=== PATIENT | male | born 1940 | race Caucasian/White ===

== ENCOUNTER 2017-03-27 16:51 | Inpatient (IN) ==
[2017-03-27] MEDS ORDERED: Thiamine (B-1) 100 MG in D5% in Water 50 ML IVPB STA (17:25)
[2017-03-27] MEDS ORDERED: 0.9 % Sodium Chloride 500 ML IVC ONE (17:25)
[2017-03-27 17:31] LABS: Basophils % 0.5 %; Hematocrit 45.1 % (37.5-50.1); Immature Granulocytes % 0.5 % (0-4); Lymphocytes # 1.2 K/mcL (0.6-4.6); Lymphocytes % 18.6 %; Mean Corpuscular HGB Conc 33.3 g/dL (31.6-35.5); Mean Corpuscular Volume 90.2 fL (83.0-100.0); Mean Platelet Volume 10.2 fL (9.4-12.4); Monocytes # 0.7 K/mcL (0.0-1.3); Monocytes % 10.9 %; Neutrophils # 4.6 K/mcL (1.6-8.9); Platelet Count 145 K/mcL (140-400); Red Cell Distribution Width 19.1 % (11.5-14.5); Segmented Neutrophils % 69.5 %
--- NOTE | 2017-03-27 17:43 | Emergency Department Note ---
Disposition Clinical Impression: Weakness Disposition: Still a Patient Referrals: Rosa Maria Gaston, SHANNAN [Primary Care Provider] - Forms: ED Satisfaction Letter General Adult HPI - General Chief complaint: ED Fall Stated complaint: fall, ETOH Time Seen by Provider: 03/27/17 16:56 Source: patient, EMS Limitations: no limitations Nursing Notes Reviewed: Yes Vital Signs Reviewed: Yes - History of Present Illness HPI Narrative: Patient here for evaluation after fall. Patient had gone to lunch with his and he fell getting out of the car. EMS found the patient next the car. Patient is currently intoxicated with any history secondary to indirect answers questions. Patient denies specific pain complaints at this time. No specific tenderness to palpation. Patient's leg are swollen with +2 pitting edema thru the knees. Due to the patient's mental status and concern for intoxication. Head and neck CT will be performed. He complains of some epigastric abdominal pain and a EKG, chest x-ray, basic blood work including alcohol level be obtained. EKG shows concern for inversions in the anterior leads. Troponin and BNP were added. Pain Scale: 8 - Related Data Home Medications Medication Instructions Recorded Confirmed Albuterol Sulfate [Albuterol 2 puff IH Q4HR PRN 08/08/15 08/08/15 Inhaler] Aspirin 325 mg PO AD 08/08/15 08/08/15 LORazepam [Ativan] 1 mg PO BID 08/08/15 08/08/15 Nitroglycerin [Nitrostat] 0.4 mg SL AD PRN 08/08/15 08/08/15 Tamsulosin [Flomax] 0.4 mg PO DAILY 08/08/15 08/08/15 Previous Rx's Medication Instructions Recorded Budesonide/Formoterol 80/4.5 1 puff IH BIDR inhaler 08/30/15 [Symbicort] Digoxin [Lanoxin] 0.125 mg PO DAILY #30 tablet 08/30/15 Furosemide [Lasix] 40 mg PO DAILY tablet 08/30/15 Metoprolol [Lopressor] 25 mg PO BID #60 tablet 08/30/15 OxyCODONE/APAP 5/325 [Percocet 1 each PO Q8HR PRN #30 tablet 08/30/15 5/325] Allergies Allergy/AdvReac Type Severity Reaction Status Date / Time No Known Allergies Allergy Verified 03/27/17 17:08 Limitations: ROS unobtainable due to patients medical condition (Intoxicated) Past Medical History - Past Medical History Medical history: Reports: atrial fibrillation, cancer, CHF, hypertension, other Surgical history: Reports: cancer surgery Psychiatric history: Reports: no psych history - Social History Smoking Status: Former smoker Smokeless Tobacco Status: No Alcohol use: Reports: heavy, recent Drug use: Reports: none Physical Exam General appearance: NAD, conversant; intoxicated Eyes: anicteric sclerae, moist conjunctivae; PERRL HENT: Atraumatic; oropharynx clear with moist mucous membranes and no mucosal ulcerations Neck: Normal inspection; Trachea midline; FROM, supple Lungs: CTA, with normal respiratory effort and no intercostal retractions CV: Tachycardic and irregular Abdomen: Soft, non-tender; no rebound or gaurding Extremities: No peripheral edema or extremity lymphadenopathy Skin: Significant sun exposure ;Normal temperature; no rash, ulcers or lesions Psych: Appropriate mood and affect Neuro: alert and oriented to person, not place and time - General Limitations: no limitations General appearance: alert, appears intoxicated Course - Reevaluation(s) Reevaluation #1: Patient signed out to the night team. Dr. Arriaga Vital Signs Temperature 98.7 F 03/27/17 16:54 Pulse Rate 126 03/27/17 16:54 Respiratory Rate 22 03/27/17 16:54 Blood Pressure 108/73 03/27/17 16:54 O2 Sat by Pulse Oximetry 89 03/27/17 16:54 Temperature 98.7 F 03/27/17 16:54 Pulse Rate 114 03/27/17 17:49 Respiratory Rate 22 03/27/17 17:49 Blood Pressure 109/82 03/27/17 17:49 O2 Sat by Pulse Oximetry 90 03/27/17 18:01 Oxygen Delivery Oxygen Delivery Nasal Cannula Medical Decision Making - Medical Records Medical records reviewed: Yes I reviewed the patient's medical records. - Lab Data Lab results reviewed: Yes I reviewed the patient's lab results. Result diagrams: 03/27/17 17:15 03/27/17 17:15 Lab Results 03/27/17 03/27/17 03/27/17 Range/Units 17:15 17:15 17:15 WBC 6.6 (4.3-11.1) K/mcL RBC 5.00 (4.19-5.50) M/mcL Hgb 15.0 (12.9-16.9) g/dL Hct 45.1 (37.5-50.1) % MCV 90.2 (83.0-100.0) fL MCH 30.0 (28.0-33.3) pg MCHC 33.3 (31.6-35.5) g/dL RDW 19.1 H (11.5-14.5) % Plt Count 145 (140-400) K/mcL MPV 10.2 (9.4-12.4) fL Immature Gran % 0.5 (0-4) % Seg Neutrophils % 69.5 % Lymphocytes % 18.6 % Monocytes % 10.9 % Eosinophils % 0.0 % Basophils % 0.5 % Neutrophils # 4.6 (1.6-8.9) K/mcL Lymphocytes # 1.2 (0.6-4.6) K/mcL Monocytes # 0.7 (0.0-1.3) K/mcL Eosinophils # 0.0 (0.0-0.6) K/mcL Basophils # 0.0 (0.0-0.2) K/mcL Sodium 136 (136-145) mEq/L Potassium 3.2 L (3.5-4.5) mEq/L Chloride 103 (98-109) mEq/L Carbon Dioxide 21 (19-29) mEq/L BUN 14 (8-26) mg/dL Creatinine 1.30 H (0.72-1.25) mg/dL Est GFR ( Amer) > 60 (> 60) Est GFR (Non-Af Amer) 54 L (> 60) BUN/Creatinine Ratio 11 (6-26) Glucose 89 (70-99) mg/dL Calculated Osmolality 282 (280-300) Calcium 8.9 (8.6-10.8) mg/dL Magnesium 1.8 (1.6-2.6) mg/dL Total Bilirubin 1.8 H (0.2-1.2) mg/dL AST 28 (5-34) Units/L ALT 25 (0-55) Units/L Alkaline Phosphatase 142 H (38-126) Units/L Troponin I 0.04 H* (0-0.03) ng/mL Serum Total Protein 7.2 (6.0-8.3) g/dL Albumin 3.3 L (3.5-5.0) g/dL Globulin 3.9 H (2.4-3.5) g/dL Albumin/Globulin Ratio 0.8 L (1.1-2.2) Ethyl Alcohol 180 H (0-10) mg/dL - Radiology Data Radiology results reviewed: Yes I reviewed the patient's radiology results. - EKG Data EKG #1 EKG attestation: Yes I reviewed and interpreted this EKG. EKG results narrative: EKG shows atrial fibrillation with ventricular rate of 118. Patient has ST depressions throughout the anterior leads including V1 and V2 V3 V4 V5. Patient has depressions in the inferior leads including 2 and aVF. Attestation Statement - Attestation Attestation: I examined this patient and my medical decision-making was reviewed with the FINANCIAL QUANTITATIVE ANALYST/PA/Advanced Practice Nurse/Resident Physician. I agree with the documented findings, disposition and treatment plan as described except to the extent set forth below. Patient emergency department with a chief complaint of a fall. Patient found by medics laying beside his car. His is an APTT had called them. Patient had voiced multiple different complaints to them from chest pain or trouble breathing. He has no complaints for us. On examination he is awake and alert. Appears intoxicated slightly slurring his words. Abdomen soft. Lungs clear. Plan. The patient's EKG has diffuse inversions. Concerning for ischemia. Troponin 0.0 45 hypoxic. We will check a CTA of his chest. Patient will be admitted.
[2017-03-27 17:46] LABS: Alanine Aminotransferase 25 Units/L (0-55); Albumin 3.3 g/dL (3.5-5.0); Albumin/Globulin Ratio 0.8 (1.1-2.2); Alkaline Phosphatase 142 Units/L (38-126); Aspartate Amino Transferase 28 Units/L (5-34); BUN/Creatinine Ratio 11 (6-26); Bilirubin,Total 1.8 mg/dL (0.2-1.2); Blood Urea Nitrogen 14 mg/dL (8-26); Calcium 8.9 mg/dL (8.6-10.8); Carbon Dioxide 21 mEq/L (19-29); Chloride 103 mEq/L (98-109); Ethanol 180 mg/dL (0-10); Globulin 3.9 g/dL (2.4-3.5); Glucose 89 mg/dL (70-99); Magnesium 1.8 mg/dL (1.6-2.6); Osmolality,Calculated 282 (280-300); Potassium 3.2 mEq/L (3.5-4.5); Sodium 136 mEq/L (136-145); Total Protein 7.2 g/dL (6.0-8.3); eGFR For African Americans > 60 (> 60); eGFR For Non-African Americans 54 (> 60)
[2017-03-27] MEDS ORDERED: *HR* Heparin 5,000 UNIT/ML VIAL IVP PRN ×2 (19:33)
[2017-03-27] MEDS ORDERED: *HR* Heparin 5,000 UNIT/ML VIAL IVP ONE (19:33)
--- NOTE | 2017-03-27 19:33 | Emergency Department Note ---
Disposition Clinical Impression: Weakness, Pulmonary hypertension, Elevated troponin Pulmonary embolism Qualifiers: Pulmonary embolism type: other Chronicity: chronic Acute cor pulmonale presence : without acute cor pulmonale Qualified Code(s): I27.82 - Chronic pulmonary embolism Alcohol poisoning Qualifiers: Encounter type: initial encounter Injury intent: accidental or unintentional Qualified Code(s): T51.91XA - Toxic effect of unspecified alcohol, accidental ( unintentional), initial encounter Fall Qualifiers: Encounter type: initial encounter Qualified Code(s): W19.XXXA - Unspecified fall, initial encounter Disposition: Admitted As Inpatient Condition: Good Referrals: Rosa Maria Gaston, [employer] [Primary Care Provider] - Forms: ED Satisfaction Letter Time of Disposition: 20:49 General Adult HPI - General Chief complaint: ED Fall Stated complaint: fall, ETOH Time Seen by Provider: 03/27/17 16:56 Source: patient, EMS Limitations: no limitations Nursing Notes Reviewed: Yes Vital Signs Reviewed: Yes - History of Present Illness HPI Narrative: Patient signed out from day group Dr. Jarquin and Dr. Og. Pain Scale: 8 - Related Data Home Medications Medication Instructions Recorded Confirmed Albuterol Sulfate [Albuterol 2 puff IH Q4HR PRN 08/08/15 03/27/17 Inhaler] LORazepam [Ativan] 1 mg PO BID 08/08/15 03/27/17 Furosemide [Lasix] 40 mg PO BID 03/27/17 03/27/17 Gabapentin [Neurontin] 300 mg PO BID 03/27/17 03/27/17 Ipratropium/Albuterol Neb [Duoneb] 3 ml IH Q6HR 03/27/17 Omeprazole [PriLOSEC] 20 mg PO DAILY 03/27/17 03/27/17 Oxycodone HCl/Acetaminophen 1 each PO Q6H PRN 03/27/17 03/27/17 [Percocet 10-325 mg Tablet] Oxygen 1 each .ROUTE AD 03/27/17 03/27/17 predniSONE [Prednisone] 2.5 mg PO DAILY 03/27/17 03/27/17 Allergies Allergy/AdvReac Type Severity Reaction Status Date / Time No Known Allergies Allergy Verified 03/27/17 17:08 Past Medical History - Past Medical History Medical history: Reports: atrial fibrillation, cancer, CHF, hypertension, other Surgical history: Reports: cancer surgery Psychiatric history: Reports: no psych history - Social History Smoking Status: Former smoker Smokeless Tobacco Status: No Alcohol use: Reports: heavy, recent Drug use: Reports: none Physical Exam - General Limitations: no limitations General appearance: alert, appears intoxicated Course Course Narrative: Patient signed out from Dr. roseanne Og. CTA of chest was pending at that time. CTA of chest came back with a PE. We will treat patient with heparin. There is also some suggestion of groundglass opacities suggesting fibrosis versus atelectasis versus pneumonia. The patient does not have an elevated white count nor is febrile. I spoke with the hospitalist. He agrees to withhold antibiotics at this time and to further assess to see if a pneumonia does evolve. We have started the patient on heparin therapy and will admit to the hospitalist. Patient is agreeable with this plan. - Consultations Consultation #1: Dr Garner accepted the patient stable condition. Time: 20:24 Vital Signs Temperature 98.7 F 03/27/17 16:54 Pulse Rate 126 03/27/17 16:54 Respiratory Rate 22 03/27/17 16:54 Blood Pressure 108/73 03/27/17 16:54 O2 Sat by Pulse Oximetry 89 03/27/17 16:54 Temperature 98.7 F 03/27/17 16:54 Pulse Rate 70 03/27/17 20:28 Respiratory Rate 18 03/27/17 20:28 Blood Pressure 127/90 03/27/17 20:28 O2 Sat by Pulse Oximetry 90 03/27/17 20:28 Oxygen Delivery Oxygen Delivery Nasal Cannula Medical Decision Making - Lab Data Result diagrams: 03/27/17 17:15 03/27/17 17:15 Lab Results 03/27/17 03/27/17 03/27/17 Range/Units 17:15 17:15 17:15 WBC 6.6 (4.3-11.1) K/mcL RBC 5.00 (4.19-5.50) M/mcL Hgb 15.0 (12.9-16.9) g/dL Hct 45.1 (37.5-50.1) % MCV 90.2 (83.0-100.0) fL MCH 30.0 (28.0-33.3) pg MCHC 33.3 (31.6-35.5) g/dL RDW 19.1 H (11.5-14.5) % Plt Count 145 (140-400) K/mcL MPV 10.2 (9.4-12.4) fL Immature Gran % 0.5 (0-4) % Seg Neutrophils % 69.5 % Lymphocytes % 18.6 % Monocytes % 10.9 % Eosinophils % 0.0 % Basophils % 0.5 % Neutrophils # 4.6 (1.6-8.9) K/mcL Lymphocytes # 1.2 (0.6-4.6) K/mcL Monocytes # 0.7 (0.0-1.3) K/mcL Eosinophils # 0.0 (0.0-0.6) K/mcL Basophils # 0.0 (0.0-0.2) K/mcL PT (9.4-12.1) Seconds INR APTT (26.0-36.0) Seconds Sodium 136 (136-145) mEq/L Potassium 3.2 L (3.5-4.5) mEq/L Chloride 103 (98-109) mEq/L Carbon Dioxide 21 (19-29) mEq/L BUN 14 (8-26) mg/dL Creatinine 1.30 H (0.72-1.25) mg/dL Est GFR ( Amer) > 60 (> 60) Est GFR (Non-Af Amer) 54 L (> 60) BUN/Creatinine Ratio 11 (6-26) Glucose 89 (70-99) mg/dL Calculated Osmolality 282 (280-300) Calcium 8.9 (8.6-10.8) mg/dL Magnesium 1.8 (1.6-2.6) mg/dL Total Bilirubin 1.8 H (0.2-1.2) mg/dL AST 28 (5-34) Units/L ALT 25 (0-55) Units/L Alkaline Phosphatase 142 H (38-126) Units/L Troponin I 0.04 H* (0-0.03) ng/mL B-Natriuretic Peptide (0-100) pg/mL Serum Total Protein 7.2 (6.0-8.3) g/dL Albumin 3.3 L (3.5-5.0) g/dL Globulin 3.9 H (2.4-3.5) g/dL Albumin/Globulin Ratio 0.8 L (1.1-2.2) Ethyl Alcohol 180 H (0-10) mg/dL 03/27/17 03/27/17 Range/Units 17:15 17:15 WBC (4.3-11.1) K/mcL RBC (4.19-5.50) M/mcL Hgb (12.9-16.9) g/dL Hct (37.5-50.1) % MCV (83.0-100.0) fL MCH (28.0-33.3) pg MCHC (31.6-35.5) g/dL RDW (11.5-14.5) % Plt Count (140-400) K/mcL MPV (9.4-12.4) fL Immature Gran % (0-4) % Seg Neutrophils % % Lymphocytes % % Monocytes % % Eosinophils % % Basophils % % Neutrophils # (1.6-8.9) K/mcL Lymphocytes # (0.6-4.6) K/mcL Monocytes # (0.0-1.3) K/mcL Eosinophils # (0.0-0.6) K/mcL Basophils # (0.0-0.2) K/mcL PT 12.3 H (9.4-12.1) Seconds INR 1.1 APTT 27.3 (26.0-36.0) Seconds Sodium (136-145) mEq/L Potassium (3.5-4.5) mEq/L Chloride (98-109) mEq/L Carbon Dioxide (19-29) mEq/L BUN (8-26) mg/dL Creatinine (0.72-1.25) mg/dL Est GFR ( Amer) (> 60) Est GFR (Non-Af Amer) (> 60) BUN/Creatinine Ratio (6-26) Glucose (70-99) mg/dL Calculated Osmolality (280-300) Calcium (8.6-10.8) mg/dL Magnesium (1.6-2.6) mg/dL Total Bilirubin (0.2-1.2) mg/dL AST (5-34) Units/L ALT (0-55) Units/L Alkaline Phosphatase (38-126) Units/L Troponin I (0-0.03) ng/mL B-Natriuretic Peptide 948 H (0-100) pg/mL Serum Total Protein (6.0-8.3) g/dL Albumin (3.5-5.0) g/dL Globulin (2.4-3.5) g/dL Albumin/Globulin Ratio (1.1-2.2) Ethyl Alcohol (0-10) mg/dL - Radiology Data Cervical Spine CT 03/27/17 17:03 IMPRESSION: 1. No evidence of an acute fracture in the cervical spine. D/ / 03/27/2017 18:02:08 Phani Pérez MD / dilia Interpreting Provider: Phani Pérez MD Head CT 03/27/17 17:03 IMPRESSION: No acute intracranial abnormality. Bilateral ethmoid sinus and right mastoid air cell disease. D/ / Odilia Pastor Cha, MD / Odilia Pastor Cha, MD Interpreting Provider: Odilia Pastor Cha, MD Chest CTA 03/27/17 17:51 IMPRESSION: 1. Eccentric nonocclusive thrombus along the right pulmonary artery, favoring chronic rather than acute etiology. 2. Cardiomegaly. RV:LV ratio 1.2. 3. Main pulmonary artery dilated to 4 cm suggesting underlying pulmonary hypertension. 4. Severe emphysema. 5. Bilateral dependent reticular and ground-glass opacities, right greater than left. Findings are nonspecific, could represent atelectasis, fibrosis or pneumonia. Findings were discussed with Lauro Og at 7:48 pm on 03/27/2017. D/ / 03/27/2017 19:52:46 Elieser Ruiz MD / dilia Interpreting Provider: Elieser Ruiz MD Critical Care Time Critical Care Time: Yes Total Critical Care Time: 35 Attestation: Critical care time 35 minutes managing patient's hypoxia and pulmonary embolism. Attestation Statement - Attestation Attestation: Patient was seen with resident physician. I reviewed the history, physical, assessment and plan, and agree with the findings. I also personally evaluated this patient and had [id number] time with this patient. 77-year-old male who was signed out to me by the day shift team. At that time his workup was completed except for a CTA of the chest. This was ordered because the patient had some ST segment depression on his EKG the slightly elevated troponin. Patient's history is having fallen out of a car, intoxication, and some shortness of breath and unexplained hypoxia. ED course patient was hemodynamically stable through the time I was in charge of his care in the emergency department. The CT scan of the chest did not fact revealed a pulmonary embolism. There is also questionable groundglass appearance which could have represented either pneumonia, or atelectasis. Was not well-defined in that regard. Because of patient's white blood cell count was normal and he was afebrile we opted not to start antibiotics. This decision was discussed with the hospitalist who agreed. Patient was started on heparin. Hospitalist was notified. Patient was admitted to the hospital for further evaluation treatment. Critical care time for this patient was 35 minutes.
[2017-03-27 19:48] LABS: INR 1.1; Prothrombin Time 12.3 Seconds (9.4-12.1)
[2017-03-27 19:51] LABS: Activated Partial Thrombo Time 27.3 Seconds (26.0-36.0)
[2017-03-27] MEDS: Heparin 25,000 UNIT/500 ML D5W 25,000 UNIT/500 ML MLS IVC SCH (20:06)
[2017-03-27] MEDS ORDERED: Naloxone 0.4 MG/ML INJ IVP PRN (21:56)
[2017-03-27] MEDS ORDERED: Acetaminophen 325 MG TABLET PO PRN (21:56)
[2017-03-27] MEDS ORDERED: *HR* LORazepam 2 MG/ML VIAL IVP PRN ×3 (22:07)
--- NOTE | 2017-03-27 22:17 | Internal Med History&Physical ---
Date of Encounter: 03/27/17 Time of Encounter: 22:00 Assessment and Plan (1) CKD (chronic kidney disease) stage 3, GFR 30-59 ml/min Current visit: No Status: Chronic Stable. Creatinine level is at about his baseline. (2) Syncope Current visit: Yes Status: Acute Syncope, most likely due to patient's pulmonary hypertension. - We will place patient on cardiac monitoring. - Echo and duplex carotid ordered. Qualifiers: Syncope type: unspecified Qualified Code(s): R55 - Syncope and collapse (3) Paroxysmal a-fib Current visit: No Status: Chronic Patient to present to ER with A. fib. His old EKG reviewed, has A Fib previously in 2015. - Patient is not on any anticoagulation at home. - His heart rate is a high, placed metoprolol 25 mg by mouth twice a day. - Pt will be on anticoagulations because of his pulmonary embolism. (4) DVT prophylaxis Current visit: No Status: Acute Patient is on heparin drip (5) Pulmonary embolism Current visit: Yes Status: Acute Patient has chronic pulmonary embolism. Place patient on heparin drip now. May need by mouth anticoagulating agents for long-term anticoagulation. Patient is at high risk because he is on heparin drip, needed close monitoring. Qualifiers: Pulmonary embolism type: other Chronicity: chronic Acute cor pulmonale presence: without acute cor pulmonale Qualified Code(s): I27.82 - Chronic pulmonary embolism (6) Pulmonary hypertension Current visit: Yes Status: Acute Patient may have pulmonary hypertension, which may be caused by chronic pulmonary embolism (chronic thromboembolic pulmonary hypertension). - We will repeat echo. - Keep pt on oxygen therapy, avoid hypoxia. - Continue anticoagulation for PE - Please follow echo result, may need pulmonology consult if pulmonary hypertension confirmed by echo. (7) Pneumonia Current visit: Yes Status: Acute Patient has cough. CTA shows suspected pneumonia. - Pt has no recent hospitalization. - Will place him on azithromycin and Rocephin for community-acquired pneumonia Qualifiers: Pneumonia type: due to unspecified organism Laterality: bilateral Lung location: lower lobe of lung Qualified Code(s): J18.9 - Pneumonia, unspecified organism (8) Alcoholism Current visit: Yes Status: Acute Place patient on CIWA protocol to prevent withdrawal. Vitamin B-1 and folic acid supplement. Internal Medicine - H&P: HPI Chief complaint: Syncope Admitted From: Home Plans for Post Hospital Care: Home History of present illness: Mr. Zarate is a 77 year old male with a history of colon cancer S/P surgery in 2011, on home oxygen, A. fib, alcoholism present to ER for syncope. Patient said he blacked out when he get out of the car at 3 pm this afternoon. Patient denies palpitation, feeling of hungry, dizziness before syncope. He has no tongue bite or urinary/fecal incontinence. He was sent to ER. In ER, he was found that the situation and tachycardia. CTA has been ordered, and he was found probably chronic pulmonary embolism. Chest x-ray also reported right- sided cardiomegaly. Patient was admitted for further management. I discussed the CODE STATUS with patient. He does not want resuscitation, but accepts intubation. DNR CCA placed. Past Med Surg Social Fam HX - Past Medical History Medical history: atrial fibrillation, cancer, CHF, hypertension, other Psychiatric history: no psych history - Past Surgical History Surgical History: cancer surgery - Social History Smoking Status: Former smoker Smokeless Tobacco Status: No Alcohol use: heavy, recent Drug use: none - Family History Brother Hx Family Cancer: Yes (metastatic, lung) Internal Medicine - H&P: Meds Albuterol Sulfate [Albuterol Inhaler] 2 puff IH Q4HR PRN 08/08/15 [History] LORazepam [Ativan] 1 mg PO BID 08/08/15 [History] Furosemide [Lasix] 40 mg PO BID 03/27/17 [History] Gabapentin [Neurontin] 300 mg PO BID 03/27/17 [History] Ipratropium/Albuterol Neb [Duoneb] 3 ml IH Q6HR 03/27/17 [History] Omeprazole [PriLOSEC] 20 mg PO DAILY 03/27/17 [History] Oxycodone HCl/Acetaminophen [Percocet 10-325 mg Tablet] 1 each PO Q6H PRN [History] Oxygen 1 each .ROUTE AD 03/27/17 [History] predniSONE [Prednisone] 2.5 mg PO DAILY 03/27/17 [History] Allergies No Known Allergies Allergy (Verified 03/27/17 17:08) All Systems PM: A 10-system review of systems was performed and is negative for pertinent findings except as documented above in the HPI. - Constitutional Vitals: Temp Pulse Resp BP Pulse Ox 0 F L 70 0 0/0 90 03/27/17 21:31 03/27/17 20:28 03/27/17 21:31 03/27/17 21:31 03/27/17 20:28 General appearance: Present: A&O X 3, no acute distress, answers questions appropriately - Head Head exam: Present: atraumatic, normocephalic - Eye Eye exam: Present: PERRL, conjuntiva pink, sclera anicteric Pupils: Present: PERRL - Neck Neck exam general surgery: Present: supple, trachea midline. Absent: lymphadenopathy - Respiratory Respiratory exam: Present: CTAB. Absent: accessory muscle use, rales, rhonchi, wheezes - Cardiovascular Cardiovascular exam: Present: RRR, +S1, +S2. Absent: diastolic murmur, gallop, rubs, systolic murmur - GI/Abdominal GI/Abdominal exam: Present: normal bowel sounds, soft, no peritoneal signs. Absent: distended, tenderness - Extremities Exam Extremities exam: Present: pedal edema (Bilateral pedal edema up to knee), warm , radial pulses palpable and symetrical. Absent: calf tenderness, cyanotic - Neurological Exam Neurological exam: Present: CN II-XII intact, oriented X3, no focal deficits. Absent: pronater drift, facial droop, speech deficit - Skin Skin exam: Present: dry, intact Internal Med - H&P Results - Labs CBC & Chem 7: 03/27/17 17:15 03/27/17 17:15
[2017-03-27] MEDS: *HR* OxyCODONE/APAP 10/325 TABLET PO PRN (23:31)
[2017-03-28] MEDS: Azithromycin 500 MG in D5% in Water 250 ML IVPB SCH (03:13)
[2017-03-28 03:45] LABS: Basophils % 0.7 %; Eosinophils # 0.1 K/mcL (0.0-0.6); Eosinophils % 1.2 %; Hematocrit 45.8 % (37.5-50.1); Hemoglobin 14.8 g/dL (12.9-16.9); Immature Granulocytes % 0.9 % (0-4); Lymphocytes # 1.7 K/mcL (0.6-4.6); Lymphocytes % 28.3 %; Mean Corpuscular HGB Conc 32.3 g/dL (31.6-35.5); Mean Corpuscular Hemoglobin 29.8 pg (28.0-33.3); Mean Corpuscular Volume 92.2 fL (83.0-100.0); Mean Platelet Volume 11.2 fL (9.4-12.4); Monocytes # 0.8 K/mcL (0.0-1.3); Neutrophils # 3.2 K/mcL (1.6-8.9); Platelet Count 139 K/mcL (140-400); Red Blood Count 4.97 M/mcL (4.19-5.50); Segmented Neutrophils % 54.9 %
[2017-03-28 04:09] LABS: Activated Partial Thrombo Time 134.8 Seconds (26.0-36.0)
[2017-03-28 04:14] LABS: BUN/Creatinine Ratio 10 (6-26); Blood Urea Nitrogen 13 mg/dL (8-26); Calcium 8.7 mg/dL (8.6-10.8); Carbon Dioxide 25 mEq/L (19-29); Chloride 104 mEq/L (98-109); Glucose 103 mg/dL (70-99); Magnesium 1.8 mg/dL (1.6-2.6); Osmolality,Calculated 288 (280-300); Phosphorous 2.6 mg/dL (2.3-4.7); Potassium 3.8 mEq/L (3.5-4.5); Sodium 139 mEq/L (136-145); eGFR For African Americans > 60 (> 60); eGFR For Non-African Americans 52 (> 60)
[2017-03-28 04:16] LABS: Heparin anti-factor XA UFH 0.8 IU/mL (0.30-0.70)
[2017-03-28] MEDS: *HR* OxyCODONE/APAP 10/325 TABLET PO PRN ×3 (05:54→18:46)
[2017-03-28] MEDS: predniSONE 5 MG TABLET PO SCH (08:26)
[2017-03-28] MEDS: Furosemide 40 MG TABLET PO SCH ×2 (08:26→18:05)
[2017-03-28] MEDS: Folic Acid 1 MG TABLET PO SCH (08:26)
[2017-03-28] MEDS: Gabapentin 300 MG CAPSULE PO SCH ×2 (08:26→21:20)
[2017-03-28] MEDS: Thiamine (B-1) 100 MG TABLET PO SCH (08:26)
[2017-03-28] MEDS: *HR* LORazepam 1 MG TABLET PO SCH ×2 (08:26→21:20)
--- NOTE | 2017-03-28 11:40 | Internal Med Progress Note ---
Date of Encounter: 03/28/17 Time of Encounter: 11:39 - Assessment and plan (1) Pulmonary embolism Current Visit: Yes Status: Acute Assessment and plan: PESI score 146 Class V severity On heparin Drip Elevated Troponin BNP 948 CKD III awaiting ECHO plan Will continue heparin drip. Patient may need a filter/long-term Lovenox. We will observe the progress and may get evaluation from hematology. Qualifiers: Pulmonary embolism type: other Chronicity: chronic Acute cor pulmonale presence: without acute cor pulmonale Qualified Code(s): I27.82 - Chronic pulmonary embolism (2) Syncope Current Visit: Yes Status: Acute Assessment and plan: Likely secondary to pulmonary embolism. We will continue to monitor very closely. Patient might need a placement if PT OT recommends Qualifiers: Syncope type: unspecified Qualified Code(s): R55 - Syncope and collapse (3) H/O colon cancer, stage III Current Visit: No Status: Chronic Assessment and plan: Patient has a previous history of colon cancer. (4) CKD (chronic kidney disease) stage 3, GFR 30-59 ml/min Current Visit: No Status: Chronic Assessment and plan: Due to CKD patient is not a candidate for Lovenox and we will continue heparin for now (5) DVT prophylaxis Current Visit: No Status: Acute Assessment and plan: On heparin drip Medical decision making: Patient moderate to severe risk of worsening in spite of being on appropriate treatment due to the underlying pulmonary embolism - Subjective Interval history: Patient seen and examined. Chart reviewed. Patient is comfortably lying down in the bed. Patient denies any chest pain, shortness of breath, dizziness or diarrhea. - Constitutional Vitals: Temp Pulse Resp BP Pulse Ox 97.5 F L 89 18 102/75 94 03/28/17 07:36 03/28/17 07:36 03/28/17 07:36 03/28/17 07:36 03/28/17 07:36 General appearance: Present: A&O X 3, no acute distress, answers questions appropriately - Head Head exam: Present: atraumatic, normocephalic - Eye Eye exam: Present: PERRL, conjuntiva pink, sclera anicteric Pupils: Present: PERRL - Neck Neck exam general surgery: Present: supple, trachea midline. Absent: lymphadenopathy - Respiratory Respiratory exam: Present: CTAB. Absent: accessory muscle use, rales, rhonchi, wheezes - Cardiovascular Cardiovascular exam: Present: RRR, +S1, +S2. Absent: diastolic murmur, gallop, rubs, systolic murmur - GI/Abdominal GI/Abdominal exam: Present: normal bowel sounds, soft, no peritoneal signs. Absent: distended, tenderness - Extremities Exam Extremities exam: Present: warm, radial pulses palpable and symetrical. Absent : calf tenderness, cyanotic, pedal edema - Neurological Exam Neurological exam: Present: CN II-XII intact, oriented X3, no focal deficits. Absent: pronater drift, facial droop, speech deficit - Skin Skin exam: Present: dry, intact Internal Medicine: Result - Labs CBC & Chem 7: 03/28/17 03:26 03/28/17 03:26 Labs: Short CBC 03/28/17 Range/Units 03:26 WBC 5.9 (4.3-11.1) K/mcL Hgb 14.8 (12.9-16.9) g/dL Hct 45.8 (37.5-50.1) % Plt Count 139 L (140-400) K/mcL Neutrophils # 3.2 (1.6-8.9) K/mcL BMP 03/28/17 03:26 Sodium 139 Potassium 3.8 Chloride 104 Carbon Dioxide 25 BUN 13 Creatinine 1.33 H Glucose 103 H Calcium 8.7 - ABG Interpretation ABG results: PT/INR, D-dimer PT 12.3 Seconds (9.4-12.1) H 03/27/17 17:15 Consult Discharge Plan - Plan Referrals: Rosa Maria Gaston, WAXER OPERATOR [Primary Care Provider] -
--- NOTE | 2017-03-28 16:35 | Carotid Imaging Report ---
Carotid Duplex Patient Name:Jayce Zarate Order Number:[id number] Procedure Date:03/28/2017 Date:1940ge:77 yrs Gender:Male Rt.BP:102 / 75 mmHgHeart Rate: Location:[facility] Room #: 2NE22 Baggage And Mail Agent:Joy Pelaez, JULIO Referring MD:Manan Navarro MD water pump servicer:Rosa Maria Gaston, MILL CRANE OPERATOR Reading MD:Cheo Huff MD Primary Indications:Syncope and collapse Risk Factors Yes/No Hypertension Yes Smoker Previous Yes Impressions: Findings: Bilateral carotid system is essentially normal. Recommendations: Preliminary noted in pt EMR. Findings Carotid Duplex: Right: The right proximal common carotid artery has a PSV of 93 cm/s and a EDV of 16 cm/s. The right mid common carotid artery has a PSV of 67 cm/s and a EDV of 16 cm/s. The right distal common carotid artery has a PSV of 63 cm/s and a EDV of 13 cm/s. The right bifurcation has a PSV of 43 cm/s and a EDV of 11 cm/s. The right proximal internal carotid artery has a PSV of 35 cm/s and a EDV of 11 cm/s. The right mid internal carotid artery has a PSV of 56 cm/s and a EDV of 19 cm/s. The right distal internal carotid artery has a PSV of 53 cm/s and a EDV of 19 cm/s. The right eca has a PSV of 78 cm/s and a EDV of 9 cm/s. The right vertebral artery has a PSV of 37 cm/s and a EDV of 11 cm/s. There is antegrade spectral Doppler flow patterns. Left: The left proximal common carotid artery has a PSV of 84 cm/s and a EDV of 14 cm/s. The left mid common carotid artery has a PSV of 51 cm/s and a EDV of 10 cm/s. The left distal common carotid artery has a PSV of 46 cm/s and a EDV of 13 cm/s. There is nonstenotic plaque in the left bifurcation with a PSV of 42 cm/s and a EDV of 8 cm/s. The left proximal internal carotid artery has a PSV of 24 cm/s and a EDV of 7 cm/s. The left mid internal carotid artery has a PSV of 43 cm/s and a EDV of 11 cm/s. The left distal internal carotid artery has a PSV of 58 cm/s and a EDV of 15 cm/s. The left eca has a PSV of 55 cm/s and a EDV of 6 cm/s. The left vertebral artery has a PSV of 29 cm/s and a EDV of 9 cm/s. There is antegrade spectral Doppler flow patterns. Prior Study: No prior study available for comparison. Carotid Results Right PSV EDV Assessment Proximal CCA 93 16 Mid CCA 67 16 Distal CCA 63 13 Bifurcation 43 11 Proximal ICA 35 11 Mid ICA 56 19 Distal ICA 53 19 ECA 78 9 Vertebral Artery 37 11 Antegrade Flow Left PSV EDV Assessment Proximal CCA 84 14 Mid CCA 51 10 Distal CCA 46 13 Bifurcation 42 8 Non Stenotic Plaque Proximal ICA 24 7 Mid ICA 43 11 Distal ICA 58 15 ECA 55 6 Vertebral Artery 29 9 Antegrade Flow Ratio's Right ICA/CCA Ratio: 0.84 ICA/CCA Values: 56/67 Left ICA/CCA Ratio: 1.14 ICA/CCA Values: 58/51 Updated by Cheo Huff MD on 03/28/2017 4:31:05 PM electronically signed on 03/28/2017 4:31:37 PM with status of Final
[2017-03-28] MEDS: Heparin 25,000 UNIT/500 ML D5W 25,000 UNIT/500 ML MLS IVC SCH (18:05)
[2017-03-29] MEDS: *HR* OxyCODONE/APAP 10/325 TABLET PO PRN ×4 (00:44→20:51)
[2017-03-29] MEDS: Azithromycin 500 MG in D5% in Water 250 ML IVPB SCH (00:45)
[2017-03-29 01:27] LABS: Basophils # 0.1 K/mcL (0.0-0.2); Basophils % 0.6 %; Eosinophils # 0.1 K/mcL (0.0-0.6); Eosinophils % 1.7 %; Hematocrit 44.8 % (37.5-50.1); Hemoglobin 14.2 g/dL (12.9-16.9); Immature Granulocytes % 0.5 % (0-4); Lymphocytes # 1.9 K/mcL (0.6-4.6); Mean Corpuscular HGB Conc 31.7 g/dL (31.6-35.5); Mean Corpuscular Hemoglobin 30.2 pg (28.0-33.3); Mean Corpuscular Volume 95.3 fL (83.0-100.0); Mean Platelet Volume 11.1 fL (9.4-12.4); Monocytes # 1.1 K/mcL (0.0-1.3); Monocytes % 13.2 %; Neutrophils # 5.2 K/mcL (1.6-8.9); Platelet Count 128 K/mcL (140-400); Red Cell Distribution Width 19.4 % (11.5-14.5)
[2017-03-29 01:44] LABS: Albumin/Globulin Ratio 0.8 (1.1-2.2); Bilirubin,Total 1.6 mg/dL (0.2-1.2); Calcium 8.7 mg/dL (8.6-10.8); Globulin 3.6 g/dL (2.4-3.5); Potassium 4.1 mEq/L (3.5-4.5); Total Protein 6.6 g/dL (6.0-8.3)
[2017-03-29] MEDS: Folic Acid 1 MG TABLET PO SCH (07:55)
[2017-03-29] MEDS: Gabapentin 300 MG CAPSULE PO SCH ×2 (07:55→19:56)
[2017-03-29] MEDS: predniSONE 5 MG TABLET PO SCH (07:55)
[2017-03-29] MEDS: Thiamine (B-1) 100 MG TABLET PO SCH (07:57)
[2017-03-29] MEDS: *HR* LORazepam 1 MG TABLET PO SCH ×2 (07:57→19:56)
[2017-03-29] MEDS: Furosemide 40 MG TABLET PO SCH ×2 (07:57→16:39)
--- NOTE | 2017-03-29 09:30 | Internal Med Progress Note ---
Date of Encounter: 03/29/17 Time of Encounter: 09:27 - Assessment and plan (1) Pulmonary embolism Current Visit: Yes Status: Acute Assessment and plan: PESI score 146 Class V severity On heparin Drip Elevated Troponin BNP 948 CKD III awaiting ECHO plan Will continue heparin drip. Patient may need a filter/long-term Lovenox. We will observe the progress and may get evaluation from hematology. 03/29/2017 echocardiogram shows severe dilated right ventricle ejection fraction: 50% Noted that patient's creatinine has worsened. we will keep a close eye on his labs. we will get hematology oncology for further management. Qualifiers: Pulmonary embolism type: other Chronicity: chronic Acute cor pulmonale presence: without acute cor pulmonale Qualified Code(s): I27.82 - Chronic pulmonary embolism (2) Syncope Current Visit: Yes Status: Acute Assessment and plan: Likely secondary to pulmonary embolism. We will continue to monitor very closely. Patient might need a placement if PT OT recommends Qualifiers: Syncope type: unspecified Qualified Code(s): R55 - Syncope and collapse (3) H/O colon cancer, stage III Current Visit: No Status: Chronic Assessment and plan: Patient has a previous history of colon cancer. (4) CKD (chronic kidney disease) stage 3, GFR 30-59 ml/min Current Visit: No Status: Chronic Assessment and plan: Due to CKD patient is not a candidate for Lovenox and we will continue heparin for now 03/29/2017 noted pierre patient's creatinine is wosning. we will monitor labs. if tomorrow the trend is still worsening then we will get Dr. claros's group to see this patient as he was evaluated by them in the past. (5) DVT prophylaxis Current Visit: No Status: Acute Assessment and plan: On heparin drip Medical decision making: Patient moderate to severe risk of worsening in spite of being on appropriate treatment due to the underlying pulmonary embolism - Subjective Interval history: Patient seen and examined. Chart reviewed. Patient is comfortably lying down in the bed. Patient denies any chest pain, shortness of breath, dizziness or diarrhea. 03/29/2017 patient seen and examined. chart reviewed. patient denies any chest pain, shortness of breath or dizziness - Constitutional Vitals: Temp Pulse Resp BP Pulse Ox 97.9 F 97 16 109/82 96 03/29/17 07:54 03/29/17 07:54 03/29/17 07:54 03/29/17 07:54 03/29/17 07:54 General appearance: Present: A&O X 3, no acute distress, answers questions appropriately - Head Head exam: Present: atraumatic, normocephalic - Eye Eye exam: Present: PERRL, conjuntiva pink, sclera anicteric Pupils: Present: PERRL - Neck Neck exam general surgery: Present: supple, trachea midline. Absent: lymphadenopathy - Respiratory Respiratory exam: Present: CTAB. Absent: accessory muscle use, rales, rhonchi, wheezes - Cardiovascular Cardiovascular exam: Present: RRR, +S1, +S2. Absent: diastolic murmur, gallop, rubs, systolic murmur - GI/Abdominal GI/Abdominal exam: Present: normal bowel sounds, soft, no peritoneal signs. Absent: distended, tenderness - Extremities Exam Extremities exam: Present: warm, radial pulses palpable and symetrical. Absent : calf tenderness, cyanotic, pedal edema - Neurological Exam Neurological exam: Present: CN II-XII intact, oriented X3, no focal deficits. Absent: pronater drift, facial droop, speech deficit - Skin Skin exam: Present: dry, intact Internal Medicine: Result - Labs CBC & Chem 7: 03/29/17 00:25 03/29/17 00:25 Labs: Short CBC 03/29/17 Range/Units 00:25 WBC 8.4 (4.3-11.1) K/mcL Hgb 14.2 (12.9-16.9) g/dL Hct 44.8 (37.5-50.1) % Plt Count 128 L (140-400) K/mcL Neutrophils # 5.2 (1.6-8.9) K/mcL BMP 03/29/17 00:25 Sodium 138 Potassium 4.1 Chloride 103 Carbon Dioxide 27 BUN 18 Creatinine 1.90 H Glucose 86 Calcium 8.7 Liver Function 03/29/17 Range/Units 00:25 Total Bilirubin 1.6 H (0.2-1.2) mg/dL AST 21 (5-34) Units/L ALT 20 (0-55) Units/L Alkaline Phosphatase 128 H (38-126) Units/L Albumin 3.0 L (3.5-5.0) g/dL - ABG Interpretation ABG results: PT/INR, D-dimer PT 12.3 Seconds (9.4-12.1) H 03/27/17 17:15 Consult Discharge Plan - Plan Referrals: Rosa Maria Gaston, STOCK DRIVER [Primary Care Provider] -
--- NOTE | 2017-03-29 13:02 | Oncology Inp Consult Note ---
Date of Encounter: 03/29/17 Time of Encounter: 13:02 - Data of Consult Patient: known to practice within the last 3 years Consult date: 03/29/17 Requesting Physician: Armond Sanches MD Primary Care Provider: Rosa Maria Gaston CNP - Consult Narrative Reason for consult: CTEPH, history of colon cancer History of present illness: Mr. Zarate is a 77 year old male patient of the cancer center who has established oncologic care for previously resected colon cancer. He is followed by my partner Dr. Collins and was last seen in the office . I have summarized patient's Heme/onc background below based on Dr. Collins's most recent office report: Stage III, pT3 N1C M0, colon cancer with perineural invasion and tumor deposits followed by emergency resection and left lower temporary colostomy 08/02/2012 and 4 cycles of adjuvant Xeloda oxaliplatin 07/10/2012-11/29/2012 with dose reduction due to grade 3 diarrhea and neuropathy grade 2. Last CT scan chest, abdomen, and pelvis April 2014 negative for metastasis. He needs surveillance colonoscopy every 3 years or so. He has a port in the left chest wall will do port flush every 6 weeks. May be able to remove the port in 6 months Hospitalization February 2014 acute renal insufficiency and urinary tension. Improved with Rucker catheter. He was on Flomax for a short duration then discontinued by Dr. Lau. Currently on Hytrin. Past Medical History Medical history: Atrophic right kidney w/hydronephrosis dyslipidemia Renal insufficiency Possible cirrhosis Surgical History Colon surgery PSYCH History: Panic attacks Tremors Family History: Mother had lung cancer which spread to her brain. Brother with colon cancer. No heart disease. SOCIAL HISTORY Tobacco use: non-smoker (quit may 2013), Smoked 1 ppd for 50-60 yrs quit 2011 Alcohol use: quit 05/2012 Drug use: none Marital status: Living situation: Lives with IMPRESSION AND PLAN 1. Colon cancer, in remission. Check blood work including CEA today 2. permanent colostomy/ileostomy. Using a belt for the parastomal hernia 3. Port flush every 6 weeks. He discussed with Dr. Barreto and the decision is to leave the port in place. May take it out in 6 months 4. COPD on home oxygen intermittently. 5. followup with pain clinic for pain control. 6. Peripheral neuropathy controlled on Neurontin. 7. Acute renal insufficiency. Improved current creatinine 1.7. Benign prostatic hypertrophy. Followup Dr. Lau. Will check PSA today 8. CHF - followup with Dr. Muñoz. Left heart catheter on 01-11-14 showed mild atherosclerosis. Ejection fraction 65%. Atrial fibrillation. He is on chronic Lasix which could be contributing to some of the renal insufficiency He needs surveillance colonoscopy to Dr. Barreto. May consider sending him back to Dr. Barreto with next visit Followup 6 months. He has subsequently been lost to follow up with oncology. Last abdomen CT 08/11/15 showed SBO with parastomal hernia around his left sided colostomy and he required surgery by Dr. Barreto for same. Patient is currently hospitalized for syncopal episode and has been found with thomboembolic pulmonary HTN. He was started on heparin infusion and Dr. Sanches has kindly requested oncology input Re: anticoagulation recommendations. Dr. Barreto has also been consulted for recommendations regarding his previously resectd Colon cancer. He also acute kidney dysfunction with Cr of 1/9 vs [address] Sanches was kind enough to discuss patient's case with me re: reason for consult. Patient seen and examined at bedside. Chart reviewed for details of ongoing care by hospital team. Rest of past medical, surgical, family, social history detailed below and verified with patient today. Review of systems: 12 point review of systems performed with patient and positive findings noted in history of present illness. All other systems are negative: Physical exam: Vital Signs Temp 97.9 F 03/29/17 07:54 Pulse 97 03/29/17 07:54 Resp 16 03/29/17 07:54 BP 109/82 03/29/17 07:54 Pulse Ox 96 03/29/17 07:54 GENERAL: Alert and oriented, comfortable appearing. Mental Status: Affect appropriate for circumstances HEENT: Sclerae anicteric. No mucositis or thrush. No other oral or pharyngeal lesions or erythema. Skin: No rashes or petechiae. No evidence of skin malignancy Lymph nodes: No cervical, supraclavicular, axillary, or inguinal adenopathy. Lungs: Clear to auscultation bilaterally. Clear to percussion bilaterally. Cardiovascular: Regular rate and rhythm. No gallops, murmurs, or rubs. Abdomen: Soft, nontender; No organomegaly or masses palpable. Extremities: No edema. No calf swelling or tenderness. No joint deformity. Neurologic: Alert, normal gait; no focal weakness or sensory abnormalities. Results: Laboratory Last Values WBC 8.4 K/mcL (4.3-11.1) 03/29/17 00:25 RBC 4.70 M/mcL (4.19-5.50) 03/29/17 00:25 Hgb 14.2 g/dL (12.9-16.9) 03/29/17 00:25 Hct 44.8 % (37.5-50.1) 03/29/17 00:25 MCV 95.3 fL (83.0-100.0) 03/29/17 00:25 MCH 30.2 pg (28.0-33.3) 03/29/17 00:25 MCHC 31.7 g/dL (31.6-35.5) 03/29/17 00:25 RDW 19.4 % (11.5-14.5) H 03/29/17 00:25 Plt Count 128 K/mcL (140-400) L 03/29/17 00:25 MPV 11.1 fL (9.4-12.4) 03/29/17 00:25 Immature Gran % 0.5 % (0-4) 03/29/17 00:25 Seg Neutrophils % 62.0 % 03/29/17 00:25 Lymphocytes % 22.0 % 03/29/17 00:25 Monocytes % 13.2 % 03/29/17 00:25 Eosinophils % 1.7 % 03/29/17 00:25 Basophils % 0.6 % 03/29/17 00:25 Neutrophils # 5.2 K/mcL (1.6-8.9) 03/29/17 00:25 Lymphocytes # 1.9 K/mcL (0.6-4.6) 03/29/17 00:25 Monocytes # 1.1 K/mcL (0.0-1.3) 03/29/17 00:25 Eosinophils # 0.1 K/mcL (0.0-0.6) 03/29/17 00:25 Basophils # 0.1 K/mcL (0.0-0.2) 03/29/17 00:25 PT 12.3 Seconds (9.4-12.1) H 03/27/17 17:15 INR 1.1 03/27/17 17:15 APTT 73.5 Seconds (26.0-36.0) H 03/29/17 06:41 Heparin Anti-Xa, Unfract 0.80 IU/mL (0.30-0.70) H 03/28/17 03:26 Sodium 138 mEq/L (136-145) 03/29/17 00:25 Potassium 4.1 mEq/L (3.5-4.5) 03/29/17 00:25 Chloride 103 mEq/L (98-109) 03/29/17 00:25 Carbon Dioxide 27 mEq/L (19-29) 03/29/17 00:25 BUN 18 mg/dL (8-26) 03/29/17 00:25 Creatinine 1.90 mg/dL (0.72-1.25) H 03/29/17 00:25 Est GFR ( Amer) 42 (> 60) L 03/29/17 00:25 Est GFR (Non-Af Amer) 35 (> 60) L 03/29/17 00:25 BUN/Creatinine Ratio 9 (6-26) 03/29/17 00:25 Glucose 86 mg/dL (70-99) 03/29/17 00:25 Calculated Osmolality 287 (280-300) 03/29/17 00:25 Calcium 8.7 mg/dL (8.6-10.8) 03/29/17 00:25 Phosphorus 2.6 mg/dL (2.3-4.7) 03/28/17 03:26 Magnesium 1.8 mg/dL (1.6-2.6) 03/28/17 03:26 Total Bilirubin 1.6 mg/dL (0.2-1.2) H 03/29/17 00:25 AST 21 Units/L (5-34) 03/29/17 00:25 ALT 20 Units/L (0-55) 03/29/17 00:25 Alkaline Phosphatase 128 Units/L (38-126) H 03/29/17 00:25 Troponin I 0.04 ng/mL (0-0.03) H* 03/27/17 17:15 B-Natriuretic Peptide 948 pg/mL (0-100) H 03/27/17 17:15 Serum Total Protein 6.6 g/dL (6.0-8.3) 03/29/17 00:25 Albumin 3.0 g/dL (3.5-5.0) L 03/29/17 00:25 Globulin 3.6 g/dL (2.4-3.5) H 03/29/17 00:25 Albumin/Globulin Ratio 0.8 (1.1-2.2) L 03/29/17 00:25 Ethyl Alcohol 180 mg/dL (0-10) H 03/27/17 17:15 Radiographic studies: Cervical Spine CT 03/27/17 17:03 IMPRESSION: 1. No evidence of an acute fracture in the cervical spine. D/ / 03/27/2017 18:02:08 Phani Pérez MD / dilia Interpreting Provider: Phani Pérez MD Head CT 03/27/17 17:03 IMPRESSION: No acute intracranial abnormality. Bilateral ethmoid sinus and right mastoid air cell disease. D/ / Odilia Pastor Cha, MD / Odilia Pastor Cha, MD Interpreting Provider: Odilia Pastor Cha, MD Chest CTA 03/27/17 17:51 IMPRESSION: 1. Eccentric nonocclusive thrombus along the right pulmonary artery, favoring chronic rather than acute etiology. 2. Cardiomegaly. RV:LV ratio 1.2. 3. Main pulmonary artery dilated to 4 cm suggesting underlying pulmonary hypertension. 4. Severe emphysema. 5. Bilateral dependent reticular and ground-glass opacities, right greater than left. Findings are nonspecific, could represent atelectasis, fibrosis or pneumonia. Findings were discussed with Lauro Og at 7:48 pm on 03/27/2017. D/ / 03/27/2017 19:52:46 Elieser Ruiz MD / dilia Interpreting Provider: Elieser Ruiz MD I personally reviewed and interpreted patient's most recent imaging studies dated 03/27-01/09. I discussed the findings with the patient today. Impression/recommendations: Syncopal episode: Attributed to CTEPH/ pulm HTN. Mgt per primary team. CTEPH/pulm HTN (RVSP 48mmHg on TTE 03/28/17): No evidence of VTE and this likely to due to advanced/long standing COPD. May also be the basis for right heart strain physiology. May be helpful to get input from pulmonary re: mgt of pulm HTN. Agree with ongoing anticoagultion and patient will need assisted anticoagulation on acct of pulm HTN. Recommend switching to oral anticoagulation with coumadin at this time. Patient reports having transportation difficulty and may be helpful to resume have home care services place to help with blood draw for Coumadin monitoring. If kidney function improves back to baseline, will consider switching to any of the NOACs depending on coverage status. Stage III Colon cancer:S/p resection followed by adjuvant chemotherapy. Has been lost to follow up for more than years. No clinical evidence of contribution from colon cancer to his current presentation. He is due to past due for surveillance colonoscopy. Dr. Barreto has been consulted. Look forward to his input. Recommend CT abdomen/pelvis(non-contrast if kidney function remains abnormal). Will make appointment to get him re-established with Dr. Collins after discharge. We'll follow the patient along side you during this hospitalization but please do not hesitate to call regarding interval hematologic questions as they arise. Thank you for your excellent ongoing care for allowing us to see him while in- house. This report was created using voice recognition software and may contain errors. It was signed but not edited to expedite communication. Corrections will be made in a separate addendum as needed. Past Med Surg Social Fam HX - Past Medical History Medical history: atrial fibrillation, cancer, CHF, hypertension, other Psychiatric history: no psych history - Past Surgical History Surgical History: cancer surgery - Social History Smoking Status: Former smoker Smokeless Tobacco Status: No Alcohol use: heavy, recent Drug use: none - Family History Brother Living Status: Hx Family Cardiac Disorders: No Hx Family Respiratory Disorders: No Hx Family Cancer: Yes (metastatic, lung) Hx Family GI Disorders: No Hx Family Genitourinary Disorders: No Hx Family Endocrine Disorder: No Hx Family Musculoskeletal Disorders: Yes Hx Family Neuromuscular Disorders: No Hx Family Neurologic Disorders: No Hx Family HEENT Disorders: No Hx Family Autoimmune Disorders: No Hx Family Reproductive Disorders: No Hx Family Psychosocial Disorders: No Hx Family Medical Disorders: No Medications and Allergies Albuterol Sulfate [Albuterol Inhaler] 2 puff IH Q4HR PRN 08/08/15 [History] LORazepam [Ativan] 1 mg PO BID 08/08/15 [History] Furosemide [Lasix] 40 mg PO BID 03/27/17 [History] Gabapentin [Neurontin] 300 mg PO BID 03/27/17 [History] Ipratropium/Albuterol Neb [Duoneb] 3 ml IH Q6HR 03/27/17 [History] Omeprazole [PriLOSEC] 20 mg PO DAILY 03/27/17 [History] Oxycodone HCl/Acetaminophen [Percocet 10-325 mg Tablet] 1 each PO Q6H PRN [History] Oxygen 1 each .ROUTE AD 03/27/17 [History] predniSONE [Prednisone] 2.5 mg PO DAILY 03/27/17 [History] Allergies No Known Allergies Allergy (Verified 03/27/17 17:08) Oncology - Exam - Constitutional Vitals: Temp Pulse Resp BP Pulse Ox 97.9 F 97 16 109/82 96 03/29/17 07:54 03/29/17 07:54 03/29/17 07:54 03/29/17 07:54 03/29/17 07:54 Oncology - Results - Labs Labs: Short CBC 03/29/17 Range/Units 00:25 WBC 8.4 (4.3-11.1) K/mcL Hgb 14.2 (12.9-16.9) g/dL Hct 44.8 (37.5-50.1) % Plt Count 128 L (140-400) K/mcL Neutrophils # 5.2 (1.6-8.9) K/mcL BMP 03/29/17 00:25 Sodium 138 Potassium 4.1 Chloride 103 Carbon Dioxide 27 BUN 18 Creatinine 1.90 H Glucose 86 Calcium 8.7 Liver Function 03/29/17 Range/Units 00:25 Total Bilirubin 1.6 H (0.2-1.2) mg/dL AST 21 (5-34) Units/L ALT 20 (0-55) Units/L Alkaline Phosphatase 128 H (38-126) Units/L Albumin 3.0 L (3.5-5.0) g/dL Consult Discharge Plan - Plan Referrals: Rosa Maria Gaston, SHANNAN [Primary Care Provider] -
[2017-03-29] MEDS: Ipratropium/Albuterol Neb 3 ML IH PRN ×2 (16:19→20:07)
[2017-03-29] MEDS: Heparin 25,000 UNIT/500 ML D5W 25,000 UNIT/500 ML MLS IVC SCH (16:39)
[2017-03-30] MEDS: Azithromycin 500 MG in D5% in Water 250 ML IVPB SCH (00:06)
[2017-03-30] MEDS: Ipratropium/Albuterol Neb 3 ML IH PRN (05:17)
[2017-03-30 06:46] LABS: Basophils # 0.1 K/mcL (0.0-0.2); Basophils % 0.7 %; Eosinophils # 0.1 K/mcL (0.0-0.6); Eosinophils % 1.9 %; Hematocrit 43.7 % (37.5-50.1); Hemoglobin 14.4 g/dL (12.9-16.9); Immature Granulocytes % 0.4 % (0-4); Lymphocytes # 1.8 K/mcL (0.6-4.6); Lymphocytes % 23.6 %; Mean Corpuscular Hemoglobin 30.9 pg (28.0-33.3); Mean Corpuscular Volume 93.8 fL (83.0-100.0); Mean Platelet Volume 11.6 fL (9.4-12.4); Monocytes # 0.8 K/mcL (0.0-1.3); Monocytes % 10.8 %; Neutrophils # 4.7 K/mcL (1.6-8.9); Platelet Count 121 K/mcL (140-400); Red Blood Count 4.66 M/mcL (4.19-5.50); Red Cell Distribution Width 19.3 % (11.5-14.5); Segmented Neutrophils % 62.6 %
[2017-03-30 06:50] LABS: INR 1.2; Prothrombin Time 13.4 Seconds (9.4-12.1)
[2017-03-30 06:58] LABS: Albumin 2.9 g/dL (3.5-5.0); Albumin/Globulin Ratio 0.8 (1.1-2.2); Bilirubin,Total 1.4 mg/dL (0.2-1.2); Calcium 8.8 mg/dL (8.6-10.8); Globulin 3.8 g/dL (2.4-3.5); Potassium 3.8 mEq/L (3.5-4.5); Total Protein 6.7 g/dL (6.0-8.3)
[2017-03-30] MEDS: Thiamine (B-1) 100 MG TABLET PO SCH (07:45)
[2017-03-30] MEDS: Folic Acid 1 MG TABLET PO SCH (07:45)
[2017-03-30] MEDS: Furosemide 40 MG TABLET PO SCH ×2 (07:45→17:08)
[2017-03-30] MEDS: *HR* LORazepam 1 MG TABLET PO SCH ×2 (07:45→20:22)
[2017-03-30] MEDS: Gabapentin 300 MG CAPSULE PO SCH ×2 (07:46→20:22)
[2017-03-30] MEDS: predniSONE 5 MG TABLET PO SCH (07:46)
--- NOTE | 2017-03-30 07:54 | Electrocardiograph Report ---
[place] [id number] Test Date: 2017-03-27 Pat Name: [facility] Department: 104 Room: 2NE22 Gender: M Audio Production Manager: : 1940 Requested By: Armond Sanches Order Number: [id number] Reading MD: Saul Melendez DO Measurements Intervals [place] Rate: 118 P: DE: 0 QRS: 122 QRSD: 91 T: 26 QT: 297 QTc: 367 Interpretive Statements Atrial fibrillation with rapid ventricular response ST-T changes due to rate and/or ischemia Electronically Signed On 03-30-2017 7:53:01 EDT by Saul Melendez DO
[2017-03-30] MEDS: *HR* OxyCODONE/APAP 10/325 TABLET PO PRN ×2 (10:57→20:22)
[2017-03-30] MEDS: *HR* Enoxaparin 80 MG/0.8 ML SYRINGE SQ SCH ×2 (13:33→20:21)
--- NOTE | 2017-03-30 15:43 | Internal Med Progress Note ---
<Guillermo Tello - Last Filed: 03/30/17 16:09> Date of Encounter: 03/30/17 Time of Encounter: 15:39 - Assessment and plan (1) Pulmonary embolism Current Visit: Yes Status: Acute Assessment and plan: PESI score 146 Class V severity On heparin Drip Elevated Troponin BNP 948 CKD III awaiting ECHO plan Will continue heparin drip. Patient may need a filter/long-term Lovenox. We will observe the progress and may get evaluation from hematology. 03/30/2017 echocardiogram shows severe dilated right ventricle ejection fraction: 50% Noted that patient's creatinine started to improve. we will keep a close eye on his labs. Hem/onc recommended to switching to coumadin now, will switch from heparin drip to lovenox (CrCl is 40) SQ BID and start coumadin, check pt/inr in AM, will consult SW so that pt can be compliant with outpt lab. Today he is requiring more oxygen, high flow 6L NC, satting 88 to 90%, bipap placed, will obtain ABG and extensive hx of smoking, will place scheduled DuoNeb ATC, bipap qualify test tonight. Qualifiers: Pulmonary embolism type: other Chronicity: chronic Acute cor pulmonale presence: without acute cor pulmonale Qualified Code(s): I27.82 - Chronic pulmonary embolism (2) CKD (chronic kidney disease) stage 3, GFR 30-59 ml/min Current Visit: No Status: Chronic Assessment and plan: SCr started to improve, CrCl is 40 therefore he is on lovenox SQ BID trying to bridge for coumadin, con't to avoid nephrotoxic agents. (3) Syncope Current Visit: Yes Status: Acute Assessment and plan: Likely secondary to pulmonary embolism. We will continue to monitor very closely. Patient might need a placement if PT OT recommends Qualifiers: Syncope type: unspecified Qualified Code(s): R55 - Syncope and collapse (4) H/O colon cancer, stage III Current Visit: No Status: Chronic Assessment and plan: Hem/Onc consulted, pt will f/u with Dr. Collins as outpt. (5) DVT prophylaxis Current Visit: No Status: Acute Assessment and plan: Coumadin. - Subjective Interval history: Pt seen and examined, pt states his SOB is slightly worse than yesterday, no requiring high flow NC, no active chest pain. - Constitutional Vitals: Temp Pulse Resp BP Pulse Ox 98.1 F 94 17 106/82 90 03/30/17 11:13 03/30/17 06:39 03/30/17 11:13 03/30/17 11:13 03/30/17 11:30 General appearance: Present: cooperative, A&O X 3, pleasant, no acute distress, answers questions appropriately - Respiratory Respiratory exam: Present: decreased breath sounds (diffusely b/l). Absent: rales, rhonchi, wheezes - Cardiovascular Cardiovascular exam: Present: RRR, +S1, +S2. Absent: gallop, rubs, systolic murmur - GI/Abdominal GI/Abdominal exam: Present: soft. Absent: distended, firm, guarding, rebound, rigid, tenderness - Extremities Exam Extremities exam: Present: normal inspection, warm. Absent: calf tenderness, pedal edema, tenderness Internal Medicine: Result - Labs CBC & Chem 7: 03/30/17 06:30 03/30/17 06:30 Labs: Short CBC 03/30/17 Range/Units 06:30 WBC 7.4 (4.3-11.1) K/mcL Hgb 14.4 (12.9-16.9) g/dL Hct 43.7 (37.5-50.1) % Plt Count 121 L (140-400) K/mcL Neutrophils # 4.7 (1.6-8.9) K/mcL BMP 03/30/17 06:30 Sodium 138 Potassium 3.8 Chloride 105 Carbon Dioxide 24 BUN 23 Creatinine 1.72 H Glucose 100 H Calcium 8.8 Liver Function 03/30/17 Range/Units 06:30 Total Bilirubin 1.4 H (0.2-1.2) mg/dL AST 20 (5-34) Units/L ALT 17 (0-55) Units/L Alkaline Phosphatase 140 H (38-126) Units/L Albumin 2.9 L (3.5-5.0) g/dL - ABG Interpretation ABG results: PT/INR, D-dimer PT 13.4 Seconds (9.4-12.1) H 03/30/17 06:30 Consult Discharge Plan - Plan Referrals: Rosa Maria Gaston, BOTTLE LINE WORKER [Primary Care Provider] - 04/07/17 1:00 pm <Verónica,Armond P - Last Filed: 03/30/17 16:38> Date of Encounter: 03/30/17 - Assessment and plan (1) Pulmonary embolism Current Visit: Yes Status: Acute Qualifiers: Pulmonary embolism type: other Chronicity: chronic Acute cor pulmonale presence: without acute cor pulmonale Qualified Code(s): I27.82 - Chronic pulmonary embolism (2) Syncope Current Visit: Yes Status: Acute Qualifiers: Syncope type: unspecified Qualified Code(s): R55 - Syncope and collapse (3) H/O colon cancer, stage III Current Visit: No Status: Chronic (4) CKD (chronic kidney disease) stage 3, GFR 30-59 ml/min Current Visit: No Status: Chronic (5) DVT prophylaxis Current Visit: No Status: Acute - Constitutional Vitals: Temp Pulse Resp BP Pulse Ox 98.1 F 103 17 102/80 92 03/30/17 15:42 03/30/17 15:42 03/30/17 15:42 03/30/17 15:42 03/30/17 15:42 Internal Medicine: Result - Labs CBC & Chem 7: 03/30/17 06:30 03/30/17 06:30 Labs: Short CBC 03/30/17 Range/Units 06:30 WBC 7.4 (4.3-11.1) K/mcL Hgb 14.4 (12.9-16.9) g/dL Hct 43.7 (37.5-50.1) % Plt Count 121 L (140-400) K/mcL Neutrophils # 4.7 (1.6-8.9) K/mcL BMP 03/30/17 06:30 Sodium 138 Potassium 3.8 Chloride 105 Carbon Dioxide 24 BUN 23 Creatinine 1.72 H Glucose 100 H Calcium 8.8 Liver Function 03/30/17 Range/Units 06:30 Total Bilirubin 1.4 H (0.2-1.2) mg/dL AST 20 (5-34) Units/L ALT 17 (0-55) Units/L Alkaline Phosphatase 140 H (38-126) Units/L Albumin 2.9 L (3.5-5.0) g/dL - ABG Interpretation ABG results: ABG ABG pH 7.44 pH Units (7.32-7.45) 03/30/17 16:15 ABG pCO2 37 mmHg (35-45) 03/30/17 16:15 ABG pO2 56 mmHg (85-104) L 03/30/17 16:15 ABG O2 Saturation 90 % (95-98) L 03/30/17 16:15 PT/INR, D-dimer PT 13.4 Seconds (9.4-12.1) H 03/30/17 06:30 - Attending Attestation I examined this patient and my medical decision-making was reviewed with the ORDERING MACHINE OPERATOR/PA/Advanced Practice Nurse/Resident Physician. I agree with the documented findings, disposition and treatment plan as described except to the extent set forth below.
[2017-03-30 16:27] LABS: ABG Base Excess 1.2 mEq/L (-2.0 to 3.0); ABG HCO3 25.1 mEQ/L (21-27); ABG Oxygen Saturation 90 % (95-98); ABG PCO2 37 mmHg (35-45); ABG PH 7.44 pH Units (7.32-7.45); ABG PO2 56 mmHg (85-104); ABG TCO2 26.2 mEq/L (20-26)
[2017-03-30 16:30] LABS: Blood Gas FiO2 44 %
[2017-03-30] MEDS ORDERED: Ipratropium/Albuterol Neb 3 ML ONE (16:33)
[2017-03-30] MEDS: Ipratropium/Albuterol Neb 3 ML IH SCH ×2 (16:34→21:24)
[2017-03-30] MEDS: Mag Hydrox/Al Hydrox/Simeth 30 ML UDC PO PRN (17:07)
[2017-03-30] MEDS ORDERED: Warfarin perPT PO PRN (18:00)
[2017-03-30] MEDS ORDERED: *HR* Warfarin 5 MG TABLET PO ONE (18:00)
[2017-03-30] MEDS: Azithromycin 250 MG TABLET PO SCH (20:22)
[2017-03-31] MEDS: Ipratropium/Albuterol Neb 3 ML IH SCH ×4 (04:04→22:51)
[2017-03-31 06:02] LABS: INR 1.2; Prothrombin Time 13.4 Seconds (9.4-12.1)
[2017-03-31] MEDS: *HR* Enoxaparin 80 MG/0.8 ML SYRINGE SQ SCH ×2 (06:10→16:35)
[2017-03-31] MEDS: *HR* OxyCODONE/APAP 10/325 TABLET PO PRN ×2 (06:18→14:50)
[2017-03-31 07:26] LABS: Calcium 8.7 mg/dL (8.6-10.8); Potassium 3.9 mEq/L (3.5-4.5)
--- NOTE | 2017-03-31 08:03 | Internal Med Progress Note ---
<Guillermo Tello - Last Filed: 03/31/17 14:43> Date of Encounter: 03/31/17 Time of Encounter: 08:03 - Assessment and plan (1) Pulmonary embolism Current Visit: Yes Status: Acute Assessment and plan: PESI score 146 Class V severity On heparin Drip Elevated Troponin BNP 948 CKD III awaiting ECHO plan Will continue heparin drip. Patient may need a filter/long-term Lovenox. We will observe the progress and may get evaluation from hematology. 03/31/2017 echocardiogram shows severe dilated right ventricle ejection fraction: 50% Noted that patient's creatinine started to improve. we will keep a close eye on his labs. Hem/onc recommended to switching to coumadin now, will switch from heparin drip to lovenox (CrCl is 40) SQ BID and start coumadin, check pt/inr in AM, will consult SW so that pt can be compliant with outpt lab. He did not qualify for bipap due to normal pCO2 in his ABG, hypoxiema could be multifactorial, he has severe emphysema, with wheezing, will start him on IV steroid, still requiring 6L of NC to sat 88 to 90% usually he only requires 2L at home. Prelim reading of b/l LE u/s was negative for DVTs. Qualifiers: Pulmonary embolism type: other Chronicity: chronic Acute cor pulmonale presence: without acute cor pulmonale Qualified Code(s): I27.82 - Chronic pulmonary embolism (2) CKD (chronic kidney disease) stage 3, GFR 30-59 ml/min Current Visit: No Status: Chronic Assessment and plan: SCr started to improve, CrCl is 40 therefore he is on lovenox SQ BID trying to bridge for coumadin, con't to avoid nephrotoxic agents. (3) Syncope Current Visit: Yes Status: Acute Assessment and plan: Likely secondary to pulmonary embolism. We will continue to monitor very closely. Patient might need a placement if PT OT recommends Qualifiers: Syncope type: unspecified Qualified Code(s): R55 - Syncope and collapse (4) H/O colon cancer, stage III Current Visit: No Status: Chronic Assessment and plan: Hem/Onc consulted, pt will f/u with Dr. Collins as outpt. (5) DVT prophylaxis Current Visit: No Status: Acute Assessment and plan: Coumadin bridge with lovenox. - Subjective Interval history: Pt seen and examined, pt states his SOB is slightly better than yesterday but still requiring 6L of NC to sat 88 to 90%. - Constitutional Vitals: Temp Pulse Resp BP Pulse Ox 97.6 F 108 18 97/76 90 03/31/17 06:50 03/31/17 06:50 03/31/17 06:50 03/31/17 06:50 03/31/17 06:50 General appearance: Present: cooperative, A&O X 3, pleasant, no acute distress, answers questions appropriately - Respiratory Respiratory exam: Present: wheezes (diffusely b/l). Absent: chest wall tenderness, rales, rhonchi - Cardiovascular Cardiovascular exam: Present: RRR, +S1, +S2. Absent: gallop, rubs, systolic murmur - GI/Abdominal GI/Abdominal exam: Present: normal bowel sounds, soft. Absent: distended, firm , guarding, rebound, rigid, tenderness Additional comments: colostomy bag in place - Extremities Exam Extremities exam: Present: normal inspection, warm, radial pulses palpable and symetrical. Absent: calf tenderness, pedal edema, tenderness Internal Medicine: Result - Labs CBC & Chem 7: 03/30/17 06:30 03/31/17 06:14 Labs: BMP 03/31/17 06:14 Sodium 138 Potassium 3.9 Chloride 105 Carbon Dioxide 23 BUN 22 Creatinine 1.53 H Glucose 108 H Calcium 8.7 - ABG Interpretation ABG results: ABG ABG pH 7.44 pH Units (7.32-7.45) 03/30/17 16:15 ABG pCO2 37 mmHg (35-45) 03/30/17 16:15 ABG pO2 56 mmHg (85-104) L 03/30/17 16:15 ABG O2 Saturation 90 % (95-98) L 03/30/17 16:15 PT/INR, D-dimer PT 13.4 Seconds (9.4-12.1) H 03/31/17 04:42 - Impressions Impressions Chest X-Ray 03/30/17 16:45 IMPRESSION: Bilateral airspace disease common not definitely changed since the CT performed 03/27/2017 given differences in technique. Findings could represent pulmonary edema or pneumonia. D/ / Odilia Pastor Cha, MD / Odilia Pastor Cha, MD Interpreting Provider: Odilia Pastor Cha, MD Consult Discharge Plan - Plan Referrals: Rosa Maria Gaston, TELEVISION PRODUCTION CLERK [Primary Care Provider] - 04/07/17 1:00 pm <Jericho Robles - Last Filed: 03/31/17 17:38> Date of Encounter: 03/31/17 - Assessment and plan (1) Acute on chronic respiratory failure with hypoxia Current Visit: Yes Status: Acute Assessment and plan: Wean oxygen as able. (2) Pulmonary embolism Current Visit: Yes Status: Acute Qualifiers: Pulmonary embolism type: other Chronicity: chronic Acute cor pulmonale presence: without acute cor pulmonale Qualified Code(s): I27.82 - Chronic pulmonary embolism (3) COPD exacerbation Current Visit: Yes Status: Acute Assessment and plan: Steroids added today. (4) CKD (chronic kidney disease) stage 3, GFR 30-59 ml/min Current Visit: No Status: Chronic (5) Syncope Current Visit: Yes Status: Acute Qualifiers: Syncope type: unspecified Qualified Code(s): R55 - Syncope and collapse (6) H/O colon cancer, stage III Current Visit: No Status: Chronic (7) HTN (hypertension) Current Visit: No Status: Chronic Qualifiers: Hypertension type: essential hypertension Qualified Code(s): I10 - Essential (primary) hypertension - Constitutional Vitals: Temp Pulse Resp BP Pulse Ox 97.9 F 116 16 90/74 91 03/31/17 16:00 03/31/17 16:00 03/31/17 16:31 03/31/17 16:00 03/31/17 16:31 Internal Medicine: Result - Labs CBC & Chem 7: 03/30/17 06:30 03/31/17 06:14 Labs: BMP 03/31/17 06:14 Sodium 138 Potassium 3.9 Chloride 105 Carbon Dioxide 23 BUN 22 Creatinine 1.53 H Glucose 108 H Calcium 8.7 - ABG Interpretation ABG results: ABG ABG pH 7.44 pH Units (7.32-7.45) 03/30/17 16:15 ABG pCO2 37 mmHg (35-45) 03/30/17 16:15 ABG pO2 56 mmHg (85-104) L 03/30/17 16:15 ABG O2 Saturation 90 % (95-98) L 03/30/17 16:15 PT/INR, D-dimer PT 13.4 Seconds (9.4-12.1) H 03/31/17 04:42 - Attending Attestation I examined this patient and my medical decision-making was reviewed with the Resident Physician on 03/31/17. I agree with the documented findings, disposition and treatment plan as described except to the extent set forth below. Mr. Zarate is currently admitted for acute on chronic hypoxic resp failure with chronic PE. He is high risk due to persistent hypoxia and potential for worsening respiratory status. Mr. Zarate is feeling OK at this time. His oxygen is slightly improved. Steroids were added for lung disease. No pain. No fever or chills. No GI symptoms. Exam Alert. Comfortable Heart reg No wheeze now No edema I/P 1. Hypoxia 2. Chronic PE 3. COPD Further diagnoses and plan as above.
[2017-03-31] MEDS: predniSONE 5 MG TABLET PO SCH (08:44)
[2017-03-31] MEDS: *HR* LORazepam 1 MG TABLET PO SCH ×2 (08:44→22:06)
[2017-03-31] MEDS: Furosemide 40 MG TABLET PO SCH ×2 (08:44→16:35)
[2017-03-31] MEDS: Gabapentin 300 MG CAPSULE PO SCH ×2 (08:45→22:06)
[2017-03-31] MEDS: Folic Acid 1 MG TABLET PO SCH (08:45)
[2017-03-31] MEDS: Thiamine (B-1) 100 MG TABLET PO SCH (08:45)
[2017-03-31] MEDS: MethylPREDNISolone 40 MG/ML VIAL IVP SCH (16:36)
--- NOTE | 2017-03-31 17:36 | Venous Imaging Report ---
LE Venous Duplex Patient Name:Jayce Zarate Order Number:[id number] Procedure Date:03/31/2017 Date:1940ge:77 yrs Gender:Male Location:[facility] Room #: 2NE22 Dry Kiln Feeder:Esperanza Smith Referring MD:Guillermo Tello DO composition weatherboard installer:Rosa Maria Gaston, CONTRACTOR FIELD HAULING Reading MD:Guillermo Urbano MD Primary Indications:r/o DVT, current PE Secondary Indications: Risk Factors Yes/No Anticoagulants Hx of Chemotherapy Impressions: Normal bilateral lower extremity deep and superficial venous exam. Findings Prior Study: No prior study available for comparison. Lower Extremity Venous Duplex Side Vein Compress Spontaneous Flow Augment Diameter (cm) Depth (cm) Right Distal Iliac Normal Yes Pulsatile Yes Right Common Femoral Normal Yes Pulsatile Yes Right Superficial Femoral Normal Yes Phasic Yes Right Popliteal Normal Yes Phasic Yes Right Posterior Tibial Normal Yes Phasic Yes Right Peroneal Normal Yes Phasic Yes Right Saphenofemoral Junction Normal Yes Phasic Yes Right Great Saphenous Normal Yes Phasic Yes Right Lesser Saphenous Normal Yes Phasic Yes Left Distal Iliac Normal Yes Pulsatile Yes Left Common Femoral Normal Yes Pulsatile Yes Left Superficial Femoral Normal Yes Phasic Yes Left Popliteal Normal Yes Phasic Yes Left Posterior Tibial Normal Yes Phasic Yes Left Peroneal Normal Yes Phasic Yes Left Saphenofemoral [place]unction Normal Yes Phasic Yes Left Great Saphenous Normal Yes Phasic Yes Left Lesser Saphenous Normal Yes Phasic Yes Updated by Guillermo Urbano MD on 03/31/2017 5:29:18 PM electronically signed on 03/31/2017 5:29:37 PM with status of Final
[2017-03-31] MEDS ORDERED: *HR* Warfarin 5 MG TABLET PO ONE (18:00)
[2017-03-31] MEDS: Azithromycin 250 MG TABLET PO SCH (22:06)
[2017-04-01] MEDS: MethylPREDNISolone 40 MG/ML VIAL IVP SCH ×4 (00:44→23:51)
[2017-04-01] MEDS: *HR* OxyCODONE/APAP 10/325 TABLET PO PRN ×4 (00:49→20:28)
[2017-04-01 04:40] LABS: INR 1.6; Prothrombin Time 17.8 Seconds (9.4-12.1)
[2017-04-01] MEDS: Ipratropium/Albuterol Neb 3 ML IH SCH ×5 (04:41→20:43)
[2017-04-01 04:58] LABS: Calcium 9.3 mg/dL (8.6-10.8); Potassium 4.3 mEq/L (3.5-4.5)
[2017-04-01] MEDS: *HR* Enoxaparin 80 MG/0.8 ML SYRINGE SQ SCH ×2 (05:11→17:06)
[2017-04-01] MEDS: Gabapentin 300 MG CAPSULE PO SCH ×2 (08:19→20:28)
[2017-04-01] MEDS: Thiamine (B-1) 100 MG TABLET PO SCH (08:19)
[2017-04-01] MEDS: Furosemide 40 MG TABLET PO SCH ×2 (08:19→17:06)
[2017-04-01] MEDS: Folic Acid 1 MG TABLET PO SCH (08:20)
[2017-04-01] MEDS: *HR* LORazepam 1 MG TABLET PO SCH ×2 (08:20→20:28)
--- NOTE | 2017-04-01 10:55 | Internal Med Progress Note ---
<Guillermo Tello - Last Filed: 04/01/17 12:27> Date of Encounter: 04/01/17 Time of Encounter: 10:55 - Assessment and plan (1) Pulmonary embolism Current Visit: Yes Status: Acute Assessment and plan: PESI score 146 Class V severity On heparin Drip Elevated Troponin BNP 948 CKD III awaiting ECHO plan Will continue heparin drip. Patient may need a filter/long-term Lovenox. We will observe the progress and may get evaluation from hematology. 04/01/2017 echocardiogram shows severe dilated right ventricle ejection fraction: 50% Noted that patient's creatinine started to improve. we will keep a close eye on his labs. Hem/onc recommended to switching to coumadin to lovenox (CrCl is 40) SQ BID and started coumadin yesterday, check pt/inr in AM, will consult SW so that pt can be compliant with outpt lab. He did not qualify for bipap due to normal pCO2 in his ABG, hypoxiema could be multifactorial, he has severe emphysema, with wheezing, started on IV steroid, hypoxia improved and now requiring 3L of NC to sat 88 to 90% b/l LE u/s was negative for DVTs. Qualifiers: Pulmonary embolism type: other Chronicity: chronic Acute cor pulmonale presence: without acute cor pulmonale Qualified Code(s): I27.82 - Chronic pulmonary embolism (2) CKD (chronic kidney disease) stage 3, GFR 30-59 ml/min Current Visit: No Status: Chronic Assessment and plan: SCr started to improve, CrCl is 40 therefore he is on lovenox SQ BID trying to bridge for coumadin, con't to avoid nephrotoxic agents. (3) Syncope Current Visit: Yes Status: Acute Assessment and plan: Likely secondary to pulmonary embolism. We will continue to monitor very closely. Patient might need a placement if PT OT recommends Qualifiers: Syncope type: unspecified Qualified Code(s): R55 - Syncope and collapse (4) H/O colon cancer, stage III Current Visit: No Status: Chronic Assessment and plan: Hem/Onc consulted, pt will f/u with Dr. Collins as outpt. (5) DVT prophylaxis Current Visit: No Status: Acute Assessment and plan: Coumadin bridge with lovenox. - Subjective Interval history: Pt seen and examined, pt states his SOB is better than yesterday and now requiring 3L of NC to sat 88 to 90%. - Constitutional Vitals: Temp Pulse Resp BP Pulse Ox 97.6 F 110 20 109/78 87 04/01/17 07:19 04/01/17 07:19 04/01/17 10:24 04/01/17 07:19 04/01/17 10:24 General appearance: Present: cooperative, A&O X 3, pleasant, no acute distress, answers questions appropriately - Respiratory Respiratory exam: Present: decreased breath sounds (Diminished diffusely lower bilateral), wheezes (Slightly upper bilateral). Absent: rales, rhonchi - Cardiovascular Cardiovascular exam: Present: RRR, +S1, +S2. Absent: gallop, rubs, tachycardia - GI/Abdominal GI/Abdominal exam: Present: normal bowel sounds, soft. Absent: distended, firm , guarding, tenderness - Extremities Exam Extremities exam: Present: normal inspection, warm, radial pulses palpable and symetrical. Absent: calf tenderness, pedal edema, tenderness Internal Medicine: Result - Labs CBC & Chem 7: 03/30/17 06:30 04/01/17 04:09 Labs: BMP 04/01/17 04:09 Sodium 138 Potassium 4.3 Chloride 104 Carbon Dioxide 23 BUN 21 Creatinine 1.60 H Glucose 157 H Calcium 9.3 - ABG Interpretation ABG results: ABG ABG pH 7.44 pH Units (7.32-7.45) 03/30/17 16:15 ABG pCO2 37 mmHg (35-45) 03/30/17 16:15 ABG pO2 56 mmHg (85-104) L 03/30/17 16:15 ABG O2 Saturation 90 % (95-98) L 03/30/17 16:15 PT/INR, D-dimer PT 17.8 Seconds (9.4-12.1) H 04/01/17 04:09 Consult Discharge Plan - Plan Referrals: Rosa Maria Gaston, SHANNAN [Primary Care Provider] - 04/07/17 1:00 pm <Jericho Robles - Last Filed: 04/01/17 15:45> Date of Encounter: 04/01/17 - Assessment and plan (1) Acute on chronic respiratory failure with hypoxia Current Visit: Yes Status: Acute Assessment and plan: Check repeat CT with no contrast today (2) Pulmonary embolism Current Visit: Yes Status: Acute Qualifiers: Pulmonary embolism type: other Chronicity: chronic Acute cor pulmonale presence: without acute cor pulmonale Qualified Code(s): I27.82 - Chronic pulmonary embolism (3) COPD exacerbation Current Visit: Yes Status: Acute Assessment and plan: Wheezing improved with steroids. (4) CKD (chronic kidney disease) stage 3, GFR 30-59 ml/min Current Visit: No Status: Chronic (5) Syncope Current Visit: Yes Status: Acute Qualifiers: Syncope type: unspecified Qualified Code(s): R55 - Syncope and collapse (6) H/O colon cancer, stage III Current Visit: No Status: Chronic (7) HTN (hypertension) Current Visit: No Status: Chronic Qualifiers: Hypertension type: essential hypertension Qualified Code(s): I10 - Essential (primary) hypertension (8) Paroxysmal a-fib Current Visit: Yes Status: Chronic - Constitutional Vitals: Temp Pulse Resp BP Pulse Ox 97.6 F 84 16 107/80 93 04/01/17 11:48 04/01/17 11:48 04/01/17 11:48 04/01/17 11:48 04/01/17 11:48 Internal Medicine: Result - Labs CBC & Chem 7: 03/30/17 06:30 04/01/17 04:09 Labs: BMP 04/01/17 04:09 Sodium 138 Potassium 4.3 Chloride 104 Carbon Dioxide 23 BUN 21 Creatinine 1.60 H Glucose 157 H Calcium 9.3 - ABG Interpretation ABG results: ABG ABG pH 7.44 pH Units (7.32-7.45) 03/30/17 16:15 ABG pCO2 37 mmHg (35-45) 03/30/17 16:15 ABG pO2 56 mmHg (85-104) L 03/30/17 16:15 ABG O2 Saturation 90 % (95-98) L 03/30/17 16:15 PT/INR, D-dimer PT 17.8 Seconds (9.4-12.1) H 04/01/17 04:09 - Attending Attestation I examined this patient and my medical decision-making was reviewed with the Resident Physician on 04/01/17. I agree with the documented findings, disposition and treatment plan as described except to the extent set forth below. Mr. Zarate is currently admitted for acute on chronic hypoxic resp failure. He remains high risk due to continued need for high levels of supplemental oxygen. He is on anticoagulation for PE as well. Mr. Zarate has no new complaints. He remains hypoxic and requires high levels of oxygen supplementation. No pain. Denies GI issues. No fever or chills. Exam Alert. Comfortable. Converses fine on high flow oxygen. Heart irreg and tachy Lungs diminished but clear I/P 1. Hypoxia - check CT today 2. JADEN on CKD 3. a fib 4. Chronic PE Further diagnoses and plan as above.
[2017-04-01] MEDS ORDERED: *HR* Warfarin 5 MG TABLET PO ONE (18:00)
[2017-04-01] MEDS: Azithromycin 250 MG TABLET PO SCH (20:28)
[2017-04-02] MEDS: Mag Hydrox/Al Hydrox/Simeth 30 ML UDC PO PRN ×2 (02:58→11:23)
[2017-04-02] MEDS: Ipratropium/Albuterol Neb 3 ML IH SCH (03:24)
[2017-04-02 05:31] LABS: Calcium 9.6 mg/dL (8.6-10.8)
[2017-04-02] MEDS: dilTIAZem HCl 60 MG TABLET PO SCH ×5 (05:33→21:52)
[2017-04-02] MEDS: *HR* Enoxaparin 80 MG/0.8 ML SYRINGE SQ SCH (05:34)
[2017-04-02] MEDS: Thiamine (B-1) 100 MG TABLET PO SCH (09:18)
[2017-04-02] MEDS: Gabapentin 300 MG CAPSULE PO SCH ×2 (09:18→21:52)
[2017-04-02] MEDS: Folic Acid 1 MG TABLET PO SCH (09:18)
[2017-04-02] MEDS: Furosemide 40 MG TABLET PO SCH ×2 (09:18→16:56)
[2017-04-02] MEDS: *HR* LORazepam 1 MG TABLET PO SCH ×2 (09:18→21:52)
[2017-04-02] MEDS: MethylPREDNISolone 40 MG/ML VIAL IVP SCH ×3 (09:18→23:08)
--- NOTE | 2017-04-02 09:28 | Electrocardiograph Report ---
[address] [place], [place] [address] Test Date: 2017-04-02 Pat Name: [facility]ce [facility] Department: 111 Room: 2NE22 Gender: M Junction Maker: [id number] Requested By: Jericho Robles Order Number: [id number] Reading MD: Neeraj Miranda MD Measurements Intervals [place] Rate: 127 P: SC: 0 QRS: 21 QRSD: 82 T: 55 QT: 266 QTc: 341 Interpretive Statements ATRIAL FIBRILLATION WITH RAPID VENTRICULAR RESPONSE INDETERMINATE AXIS CONSIDER ANTEROLATERAL ISCHEMIA Electronically Signed On 04-02-2017 9:26:50 EDT by Neeraj Miranda MD
[2017-04-02] MEDS: *HR* OxyCODONE/APAP 10/325 TABLET PO PRN ×3 (09:29→23:06)
[2017-04-02 10:10] LABS: Hematocrit 46.7 % (37.5-50.1); Hemoglobin 14.8 g/dL (12.9-16.9)
--- NOTE | 2017-04-02 10:25 | Internal Med Progress Note ---
<Guillermo Tello - Last Filed: 04/02/17 10:26> Date of Encounter: 04/02/17 Time of Encounter: 10:25 - Assessment and plan (1) Acute on chronic respiratory failure with hypoxia Current Visit: Yes Status: Acute Assessment and plan: Likely multifactorial from severe COPD, pulm HTN, chronic PE, underlying PNA and chronic diastolic CHF, at home he is on 2 to 3L of NC oxygen but now still requiring 6 to 8 high flow NC to maintain sat of 88 to 90%, ABG and repeated CT reviewed, no acute finding compare to several days ago, no hypercapnia, currently on IV abxs, IV steroid, anticoagulated, bronchodilator treatment and oxygen support, will consult pulmonology for further recommendation, this could be his new baseline for his pulm function. (2) Pulmonary embolism Current Visit: Yes Status: Acute Assessment and plan: PESI score 146 Class V severity On heparin Drip Elevated Troponin BNP 948 CKD III awaiting ECHO plan Will continue heparin drip. Patient may need a filter/long-term Lovenox. We will observe the progress and may get evaluation from hematology. 04/02/2017 echocardiogram shows severe dilated right ventricle ejection fraction: 50% Noted that patient's creatinine started to improve. we will keep a close eye on his labs. Hem/onc recommended to switching to coumadin, now therapeutic INR range He did not qualify for bipap due to normal pCO2 in his ABG, hypoxiema could be multifactorial, he has severe emphysema, with wheezing, started on IV steroid, still hypoxic, b/l LE u/s was negative for DVTs. Qualifiers: Pulmonary embolism type: other Chronicity: chronic Acute cor pulmonale presence: without acute cor pulmonale Qualified Code(s): I27.82 - Chronic pulmonary embolism (3) CKD (chronic kidney disease) stage 3, GFR 30-59 ml/min Current Visit: No Status: Chronic Assessment and plan: SCr stable, con't to avoid nephrotoxic agents. (4) Syncope Current Visit: Yes Status: Acute Assessment and plan: Likely secondary to pulm htn/pulmonary embolism. echo reviewed. We will continue to monitor very closely. Qualifiers: Syncope type: unspecified Qualified Code(s): R55 - Syncope and collapse (5) H/O colon cancer, stage III Current Visit: No Status: Chronic Assessment and plan: Hem/Onc consulted, pt will f/u with Dr. Collins as outpt. (6) DVT prophylaxis Current Visit: No Status: Acute Assessment and plan: Coumadin. - Subjective Interval history: Pt seen and examined, pt states his SOB is same as yesterday, still requiring high flow 6 to 8 L to sat 88 to 90%, no active chest pain. - Constitutional Vitals: Temp Pulse Resp BP Pulse Ox 97.8 F 102 18 106/72 91 04/02/17 07:05 04/02/17 07:05 04/02/17 07:05 04/02/17 07:05 04/02/17 08:00 General appearance: Present: cooperative, A&O X 3, no acute distress, answers questions appropriately - Respiratory Respiratory exam: Present: decreased breath sounds (diffusely upper b/l), wheezes (slightly at base b/l). Absent: rales, rhonchi - Cardiovascular Cardiovascular exam: Present: +S1, +S2, tachycardia. Absent: gallop, rubs, systolic murmur - GI/Abdominal GI/Abdominal exam: Present: normal bowel sounds, soft. Absent: distended, firm , guarding, rebound, rigid, tenderness Additional comments: colostomy bag in place - Extremities Exam Extremities exam: Present: warm, radial pulses palpable and symetrical. Absent : calf tenderness, pedal edema, tenderness Internal Medicine: Result - Labs CBC & Chem 7: 04/02/17 03:54 04/02/17 03:56 Labs: Short CBC 04/02/17 Range/Units 03:54 Hgb 14.8 (12.9-16.9) g/dL Hct 46.7 (37.5-50.1) % BMP 04/02/17 03:56 Sodium 135 L Potassium 5.0 H Chloride 100 Carbon Dioxide 24 BUN 26 Creatinine 1.62 H Glucose 136 H Calcium 9.6 - ABG Interpretation ABG results: ABG ABG pH 7.44 pH Units (7.32-7.45) 03/30/17 16:15 ABG pCO2 37 mmHg (35-45) 03/30/17 16:15 ABG pO2 56 mmHg (85-104) L 03/30/17 16:15 ABG O2 Saturation 90 % (95-98) L 03/30/17 16:15 PT/INR, D-dimer PT 34.0 Seconds (9.4-12.1) H D 04/02/17 03:56 - Impressions Impressions Chest CT 04/01/17 13:52 IMPRESSION: 1. Centrilobular emphysema. Persistent intralobular septal thickening in the lungs bilaterally, not significantly changed since exam of March 27, 2017. Finding is favored to be chronic and may represent interstitial fibrosis. 2. Mild cardiomegaly. 3. Enlarged pulmonary artery suggestive of elevated pulmonary arterial pressures. D/ / 04/01/2017 16:18:29 David Eubanks MD / michelle Interpreting Provider: David Eubanks MD Consult Discharge Plan - Plan Referrals: Rosa Maria Gaston CNP [Primary Care Provider] - 04/07/17 1:00 pm <Jericho Robles - Last Filed: 04/02/17 18:22> Date of Encounter: 04/02/17 - Assessment and plan (1) Acute on chronic respiratory failure with hypoxia Current Visit: Yes Status: Acute (2) Pulmonary embolism Current Visit: Yes Status: Acute Qualifiers: Pulmonary embolism type: other Chronicity: chronic Acute cor pulmonale presence: without acute cor pulmonale Qualified Code(s): I27.82 - Chronic pulmonary embolism (3) Paroxysmal a-fib Current Visit: Yes Status: Chronic (4) COPD exacerbation Current Visit: Yes Status: Acute (5) CKD (chronic kidney disease) stage 3, GFR 30-59 ml/min Current Visit: No Status: Chronic (6) Syncope Current Visit: Yes Status: Acute Qualifiers: Syncope type: unspecified Qualified Code(s): R55 - Syncope and collapse (7) H/O colon cancer, stage III Current Visit: No Status: Chronic (8) HTN (hypertension) Current Visit: No Status: Chronic Qualifiers: Hypertension type: essential hypertension Qualified Code(s): I10 - Essential (primary) hypertension (9) Chronic thromboembolic pulmonary hypertension Current Visit: Yes Status: Acute - Constitutional Vitals: Temp Pulse Resp BP Pulse Ox 97.7 F 114 18 125/101 94 04/02/17 15:57 04/02/17 15:57 04/02/17 16:22 04/02/17 15:57 04/02/17 16:22 Internal Medicine: Result - Labs CBC & Chem 7: 04/02/17 03:54 04/02/17 03:56 Labs: Short CBC 04/02/17 Range/Units 03:54 Hgb 14.8 (12.9-16.9) g/dL Hct 46.7 (37.5-50.1) % BMP 04/02/17 03:56 Sodium 135 L Potassium 5.0 H Chloride 100 Carbon Dioxide 24 BUN 26 Creatinine 1.62 H Glucose 136 H Calcium 9.6 - ABG Interpretation ABG results: ABG ABG pH 7.44 pH Units (7.32-7.45) 03/30/17 16:15 ABG pCO2 37 mmHg (35-45) 03/30/17 16:15 ABG pO2 56 mmHg (85-104) L 03/30/17 16:15 ABG O2 Saturation 90 % (95-98) L 03/30/17 16:15 PT/INR, D-dimer PT 34.0 Seconds (9.4-12.1) H D 04/02/17 03:56 - Impressions Impressions Chest CT 04/01/17 13:52 IMPRESSION: 1. Centrilobular emphysema. Persistent intralobular septal thickening in the lungs bilaterally, not significantly changed since exam of March 27, 2017. Finding is favored to be chronic and may represent interstitial fibrosis. 2. Mild cardiomegaly. 3. Enlarged pulmonary artery suggestive of elevated pulmonary arterial pressures. D/ / 04/01/2017 16:18:29 David Eubanks MD / michelle Interpreting Provider: David Eubanks MD - Attending Attestation I examined this patient and my medical decision-making was reviewed with the Resident Physician on 04/02/17. I agree with the documented findings, disposition and treatment plan as described except to the extent set forth below. Mr. Zarate is currently admitted for acute on chronic hypoxic resp failure due to chronic thromboembolic disease. He remains high risk due to potential for worsening respiratory status as well as his persistent rapid a fib. Mr. Zarate has had some nausea today. His heart rate has been higher. No CP. No GI symptoms. Exam Alert. Comfortable Heart irreg and tachy Lungs diminished I/P 1. Hypoxia 2. PE 3. Rapid a fib - restart card drip Further diagnoses and plan as above.
[2017-04-02] MEDS: Budesonide/Formoterol 80/4.5 MDI IH SCH ×2 (10:36→23:11)
--- NOTE | 2017-04-02 10:38 | Pulmonology Consult Note ---
Date of Encounter: 04/02/17 Time of Encounter: 10:38 Assessment and Plan (1) Acute on chronic respiratory failure with hypoxia Current Visit: Yes Status: Acute Impression 1. Chronic Respiratory Failure - multifactorial including chronic heart failure COPD and likely progression of pulmonary hypertension 2. Pulmonary Hypertension, this is multifactorial he does have at least radiographic suggestion of group for pulmonary hypertension (CTEPH), he also has group to disease secondary to left heart disease along with group 3 disease from COPD. Suspect he has had inadequately treated hypoxemia for many months. 3. COPD. Is currrently being treated for a flare -stable on exam today 4. Syncope. Likely s/t #s 5. HFpEF: Appears modestly volume overloaded on exam. 6. Chronic Afib. Rate is not adequately controlled on currently dose of carmelita blocking agent. Recs: 1. Continue to wean supplemental FiO2 to keep oxygen saturations greater than 88% to 92% advise incentive spirometry out of bed to chair as tolerated and as oxygenation improves supervised ambulation as tolerated 2. I think a strong case could be made that he has had progressive chronic thromboembolic pulmonary hypertension unfortunately is very difficult in this patient's comorbidities a separate the "wheat from the chaff" that is what is the main swing driver of his right ventricular dysfunction given the radial collateral graphic findings I am very concerned that he does have a lesion that made potentially be amenable to surgical endarterectomy. Which would be the definitive treatment for this condition and probably his only meaningful chance that improvement at least on a intermediate to long-term basis. Clearly he is not the ideal surgical candidate however it is not for me to make the final decision and he would have to be referred to a specialized center and other Psychiatric hospital for further evaluation. I broached the topic with him and at this juncture he is open to the idea of further evaluation risk stratification and final decision to this end. I think in the short-term I would recommend continued judicious diuresis for a net total -500-1 L daily and better control cardiac hemodynamics. In addition patient will require lifelong anticoagulation he is currently therapeutic on warfarin 3. Can be switched to control steroids 40 mg prednisone taper over 2 weeks 4. In general this is a very poor harbinger of progressive pulmonary hypertension/heart failure and since the tone that this patient's level of disease is serious and time really is of the essence in terms of possibly pursuing aggressive options versus conservative/hospice 5. Better rate control blood pressure control and gentle diuresis per internal medicine service 6. Recommend increasing dose of carmelita blocking agent but will defer to primary service for ongoing management Pulmonary follow closely (2) COPD (chronic obstructive pulmonary disease) Current Visit: Yes Status: Acute Qualifiers: Emphysema type: centrilobular Qualified Code(s): J43.2 - Centrilobular emphysema (3) (HFpEF) heart failure with preserved ejection fraction Current Visit: Yes Status: Acute (4) Right heart failure with reduced right ventricular function Current Visit: No Status: Acute (5) Pulmonary embolism Current Visit: Yes Status: Acute Qualifiers: Pulmonary embolism type: other Chronicity: chronic Acute cor pulmonale presence: without acute cor pulmonale Qualified Code(s): I27.82 - Chronic pulmonary embolism (6) Pulmonary hypertension Current Visit: Yes Status: Acute History of Present Illness Consult date: 04/02/17 Requesting physician: Jericho Robles Reason for consult: pulmonary hypertension Chief complaint: Syncope History of present illness: Mr. Cain is a very pleasant 77-year-old gentleman with a past medical history of advanced COPD complicated by chronic respiratory failure, Stage III, pT3 N1C M0, colon cancer s/p 4 cycles of adjuvant chemotherapy, chronic atrial fibrillation suspected diastolic dysfunction who presented after a syncopal episode. CT angiogram was performed in the ED which was notable for a nonocclusive peripheral thrombus in the pulmonary artery trunk considered highly suspicious for a chronic thromboembolic process. He was started on anticoagulation at that time with associated lab values notable for elevated BNP and troponin. He had an echocardiogram performed which was notable for significant right ventricular dilation/dysfunction and at least moderate pulmonary hypertension from echo calculations. Although he wears 2 L of oxygen at home he has required up warts of 8-10 L high flow nasal cannula to keep oxygen saturations greater than 88. At baseline he denies chest pain or other episodes of syncope. He denies prior history of venous thromboembolism he does have chronic atrial fibrillation but has refused anticoagulation because of the family member who had an untoward event. He had a prolonged smoking history so were between 60-80 pack years having stopped smoking completely in 2011. 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 He keeps two rabbits and some cats and dogs at home but no other exotic pets. He has noticed a steady decline over the last 6 months in his exercise capacity along with perceived dyspnea. He is now limited to walking very short distances is able to attend his garden such as he was able to last year. With supplemental oxygen at 2 L he was noted to have saturation from the low to mid 80s at home although he did not report being told that this was too low and needed to be increased. He does drink sometimes up to a sixpack a week and can go several months without drinking. Denies illicit drug use herbal supplements or over-the- counter preparations. In speaking with him at bedside today he is resting comfortably and in general good spirits is engaging and personable Past Med Surg Social Fam HX - Past Medical History Medical history: atrial fibrillation, cancer, CHF, hypertension, other Psychiatric history: no psych history - Past Surgical History Surgical History: cancer surgery - Social History Smoking Status: Former smoker Smokeless Tobacco Status: No Alcohol use: heavy, recent Drug use: none - Family History Brother Living Status: Hx Family Cardiac Disorders: No Hx Family Respiratory Disorders: No Hx Family Cancer: Yes (metastatic, lung) Hx Family GI Disorders: No Hx Family Genitourinary Disorders: No Hx Family Endocrine Disorder: No Hx Family Musculoskeletal Disorders: Yes Hx Family Neuromuscular Disorders: No Hx Family Neurologic Disorders: No Hx Family HEENT Disorders: No Hx Family Autoimmune Disorders: No Hx Family Reproductive Disorders: No Hx Family Psychosocial Disorders: No Hx Family Medical Disorders: No Medications and Allergies Albuterol Sulfate [Albuterol Inhaler] 2 puff IH Q4HR PRN 08/08/15 [History] LORazepam [Ativan] 1 mg PO BID 08/08/15 [History] Furosemide [Lasix] 40 mg PO BID 03/27/17 [History] Gabapentin [Neurontin] 300 mg PO BID 03/27/17 [History] Ipratropium/Albuterol Neb [Duoneb] 3 ml IH Q6HR 03/27/17 [History] Omeprazole [PriLOSEC] 20 mg PO DAILY 03/27/17 [History] Oxycodone HCl/Acetaminophen [Percocet 10-325 mg Tablet] 1 each PO Q6H PRN [History] Oxygen 1 each .ROUTE AD 03/27/17 [History] predniSONE [Prednisone] 2.5 mg PO DAILY 03/27/17 [History] Allergies No Known Allergies Allergy (Verified 03/27/17 17:08) All Systems: A 10-system review of systems was performed and is negative for pertinent findings except as documented above in the HPI. Physical Examination Vital Signs: Vital Signs, Last 4 Hours Temp Pulse Resp BP Pulse Ox 04/02/17 08:00 91 04/02/17 07:05 97.8 F 102 18 106/72 91 General appearance: no acute distress Eyes: nonicteric ENT: oropharynx moist Effort: normal Auscultation: bilateral: diminished breath sounds, rales (In lung bases) Cardiovascular: irregular rhythm, other (Loud P2 no murmur) Gastrointestinal: normoactive bowel sounds Integumentary: normal Extremities: edema (Bilateral and symmetric lower extremity edema) Musculoskeletal: no deformities normal mental status, non-focal exam mood appropriate Results - Laboratory Findings CBC and BMP: 04/02/17 03:54 04/02/17 03:56 ABG ABG pH 7.44 pH Units (7.32-7.45) 03/30/17 16:15 ABG pCO2 37 mmHg (35-45) 03/30/17 16:15 ABG pO2 56 mmHg (85-104) L 03/30/17 16:15 ABG O2 Saturation 90 % (95-98) L 03/30/17 16:15 PT/INR, D-dimer PT 34.0 Seconds (9.4-12.1) H D 04/02/17 03:56 Abnormal lab findings: Abnormal lab results RDW 19.3 % (11.5-14.5) H 03/30/17 06:30 Plt Count 121 K/mcL (140-400) L 03/30/17 06:30 PT 34.0 Seconds (9.4-12.1) H D 04/02/17 03:56 APTT 56.1 Seconds (26.0-36.0) H 03/30/17 06:30 Heparin Anti-Xa, Unfract 0.80 IU/mL (0.30-0.70) H 03/28/17 03:26 ABG pO2 56 mmHg (85-104) L 03/30/17 16:15 ABG Total CO2 26.2 mEq/L (20-26) H 03/30/17 16:15 ABG O2 Saturation 90 % (95-98) L 03/30/17 16:15 Sodium 135 mEq/L (136-145) L 04/02/17 03:56 Potassium 5.0 mEq/L (3.5-4.5) H 04/02/17 03:56 Creatinine 1.62 mg/dL (0.72-1.25) H 04/02/17 03:56 Est GFR ( Amer) 50 (> 60) L 04/02/17 03:56 Est GFR (Non-Af Amer) 42 (> 60) L 04/02/17 03:56 Glucose 136 mg/dL (70-99) H 04/02/17 03:56 Total Bilirubin 1.4 mg/dL (0.2-1.2) H 03/30/17 06:30 Alkaline Phosphatase 140 Units/L (38-126) H 03/30/17 06:30 Troponin I 0.04 ng/mL (0-0.03) H* 03/27/17 17:15 B-Natriuretic Peptide 948 pg/mL (0-100) H 03/27/17 17:15 Albumin 2.9 g/dL (3.5-5.0) L 03/30/17 06:30 Globulin 3.8 g/dL (2.4-3.5) H 03/30/17 06:30 Albumin/Globulin Ratio 0.8 (1.1-2.2) L 03/30/17 06:30 Ethyl Alcohol 180 mg/dL (0-10) H 03/27/17 17:15 - Diagnostic Findings Chest x-ray: report reviewed, image reviewed CT scan - chest: report reviewed, image reviewed - Clinical Findings Intake & Output: Intake & Output 04/01/17 04/02/17 04/02/17 23:59 07:59 15:59 Intake Total 0 / 0 0 / 0 240 / 240 Output Total 500 / 500 Balance 0 / 0 -500 / -500 240 / 240 Weight 80.4 kg Consult Discharge Plan - Plan Referrals: Rosa Maria Gaston, [employer] [Primary Care Provider] - 04/07/17 1:00 pm
[2017-04-02] MEDS: Levalbuterol Neb 0.63 MG/3 ML IH SCH ×3 (11:45→23:11)
[2017-04-02] MEDS: Ipratropium Neb 0.5 MG NEBULIZER IH SCH ×3 (11:45→23:11)
[2017-04-02] MEDS: Ondansetron 4 MG/2 ML VIAL IVP PRN ×2 (16:50→23:07)
[2017-04-02] MEDS: Azithromycin 250 MG TABLET PO SCH (21:52)
[2017-04-03] MEDS: Ipratropium Neb 0.5 MG NEBULIZER IH SCH ×2 (04:10→10:54)
[2017-04-03] MEDS: Levalbuterol Neb 0.63 MG/3 ML IH SCH ×2 (04:10→10:54)
[2017-04-03 04:50] LABS: Hematocrit 46.3 % (37.5-50.1); Hemoglobin 14.9 g/dL (12.9-16.9); Immature Granulocytes % 0.9 % (0-4); Lymphocytes # 0.3 K/mcL (0.6-4.6); Lymphocytes % 2.7 %; Mean Corpuscular HGB Conc 32.2 g/dL (31.6-35.5); Mean Corpuscular Hemoglobin 29.9 pg (28.0-33.3); Monocytes # 0.4 K/mcL (0.0-1.3); Monocytes % 3.4 %; Neutrophils # 11.4 K/mcL (1.6-8.9); Platelet Count 143 K/mcL (140-400); Red Blood Count 4.98 M/mcL (4.19-5.50); Red Cell Distribution Width 18.9 % (11.5-14.5)
[2017-04-03 05:01] LABS: INR 3.7; Prothrombin Time 41.3 Seconds (9.4-12.1)
[2017-04-03] MEDS: *HR* OxyCODONE/APAP 10/325 TABLET PO PRN ×2 (05:09→12:15)
[2017-04-03] MEDS: Ondansetron 4 MG/2 ML VIAL IVP PRN (05:09)
[2017-04-03 05:15] LABS: Calcium 9.4 mg/dL (8.6-10.8)
[2017-04-03] MEDS ORDERED: predniSONE 20 MG TABLET PO SCH (09:00)
[2017-04-03] MEDS ORDERED: Furosemide 40 MG TABLET PO SCH (09:00)
[2017-04-03] MEDS: dilTIAZem HCl 60 MG TABLET PO SCH ×2 (09:13→12:17)
[2017-04-03] MEDS: Thiamine (B-1) 100 MG TABLET PO SCH (09:13)
[2017-04-03] MEDS: Gabapentin 300 MG CAPSULE PO SCH (09:13)
[2017-04-03] MEDS: *HR* LORazepam 1 MG TABLET PO SCH (09:13)
[2017-04-03] MEDS: Folic Acid 1 MG TABLET PO SCH (09:13)
--- NOTE | 2017-04-03 09:46 | Discharge Summary ---
<Guillermo Tello - Last Filed: 04/03/17 09:44> Date of Encounter: 04/03/17 Time of Encounter: 09:44 - Discharge Diagnosis (1) Acute on chronic respiratory failure with hypoxia Priority: Primary Status: Acute (2) Chronic thromboembolic pulmonary hypertension Priority: Primary Status: Acute (3) Pulmonary embolism Priority: Primary Status: Acute Qualifiers: Pulmonary embolism type: other Chronicity: chronic Acute cor pulmonale presence: without acute cor pulmonale Qualified Code(s): I27.82 - Chronic pulmonary embolism (4) CKD (chronic kidney disease) stage 3, GFR 30-59 ml/min Priority: Secondary Status: Chronic (5) Syncope Priority: Primary Status: Acute Qualifiers: Syncope type: unspecified Qualified Code(s): R55 - Syncope and collapse (6) H/O colon cancer, stage III Priority: Secondary Status: Chronic (7) DVT prophylaxis Priority: Secondary Status: Acute - Discharge Medications Prescriptions: Ipratropium/Albuterol Neb [Duoneb] 3 ml IH Q6HR #30 inhsol Budesonide/Formoterol 80/4.5 [Symbicort 80/4.5] 2 puff IH BIDR #1 inhaler dilTIAZem HCl [Cardizem] 60 mg PO QID #30 tablet Folic Acid 1 mg PO DAILY #10 tablet Furosemide [Lasix] 40 mg PO DAILY #30 tablet predniSONE [PredniSONE] 10 mg PO DAILY #35 tablet Thiamine (B-1) [Vitamin B-1] 100 mg PO DAILY #10 tablet Warfarin [Coumadin] 2.5 mg PO 1800 #10 tablet Home Medications: Albuterol Sulfate [Albuterol Inhaler] 2 puff IH Q4HR PRN 08/08/15 [History] LORazepam [Ativan] 1 mg PO BID 08/08/15 [History] Gabapentin [Neurontin] 300 mg PO BID 03/27/17 [History] Omeprazole [PriLOSEC] 20 mg PO DAILY 03/27/17 [History] Oxycodone HCl/Acetaminophen [Percocet 10-325 mg Tablet] 1 each PO Q6H PRN [History] Oxygen 1 each .ROUTE AD 03/27/17 [History] Budesonide/Formoterol 80/4.5 [Symbicort 80/4.5] 2 puff IH BIDR #1 inhaler 04/03 [Rx] Folic Acid 1 mg PO DAILY #10 tablet 04/03/17 [Rx] Furosemide [Lasix] 40 mg PO DAILY #30 tablet 04/03/17 [Rx] Ipratropium/Albuterol Neb [Duoneb] 3 ml IH Q6HR #30 inhsol 04/03/17 [Rx] Thiamine (B-1) [Vitamin B-1] 100 mg PO DAILY #10 tablet 04/03/17 [Rx] Warfarin [Coumadin] 2.5 mg PO 1800 #10 tablet 04/03/17 [Rx] dilTIAZem HCl [Cardizem] 60 mg PO QID #30 tablet 04/03/17 [Rx] predniSONE [PredniSONE] 10 mg PO DAILY #35 tablet 04/03/17 [Rx] Allergies/Adverse Reactions: Allergies No Known Allergies Allergy (Verified 03/27/17 17:08) Procedures/tests Complete & Pending: Procedures Performed prior 72 hours Category Date Time Status CT chest w/o contrast [CT chest wo con] [CT] Routine Cat Scan 04/01/17 13:52 Completed ECG 12 lead ECG [ECG] Routine Y 04/02/17 05:21 Completed Venous Ultrasound [EV venous imaging LE BI] Routine Y 03/31/17 09:58 Completed Date of admission: 03/27/17 21:56 Primary care physician: Rosa Maria Gaston CNP Consults: 03/29/17 09:23 Consult to Oncology Hematology [CONS] Routine Consulting Provider: Kendell Duke Reason for Consult: Acute on chronic PE, Need help in anticoagulation. Call Completed: Yes 03/30/17 16:11 Consult to Physical Therapy [CONS] Routine Comment: Evaluate, develop and implement POC Reason for Consult: weakness OT [Consult to Occupational Therapy] [CONS] Routine Comment: Evaluate, develop and implement POC Reason for Consult: weakness 04/02/17 10:23 Consult to Pulmonology [CONS] Routine Consulting Provider: [facility] Reason for Consult: con't to have hypoxia, chronic PE, pulm HTN, severe COPD Call Completed: Yes Discharging clinician: Guillermo Tello Anticipated date of discharge: 04/03/17 - Patient Status Disposition: Home, Self-Care Condition: Good Functional capacity at discharge: uses cane/walker (fall precaution) Overall status at discharge: patient is not back to baseline - Discharge Instructions Instructions: Diltiazem (By mouth), Furosemide (By mouth), Prednisone (By mouth ), Warfarin (By mouth), Pulmonary Embolism (DC), Chronic Obstructive Pulmonary Disease (DC) Follow Up With: Rosa Maria Gaston CNP [Primary Care Provider] - 04/07/17 1:00 pm (F/u for hospital d/c f/u, check INR for coumadin therapy for his chronic PE, 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, he was started on IV abxs for underlying community acquired pneumonia, IV lasix for chronic diastolic CHF, IV steroid and bronchidilator treatment for severe COPD, started on IV heparin drip later switched to coumadin for chronic PE, despite all the above treatment, he remained hypoxic, requiring high flow NC of 8 to 10 L to sat 88 to 90%, finally consulted pulmonology service and recommended possible surgical pulm thromboendarterectomy evaluation for his CTEPH at [facility], I spoke to pt at length today for surgical evaluation vs palliative measure, he does not want either of these service at this time and states that he just want to go home today, he understands the risk of passing away at anytime from his critical respiratory status, I will change his home oxygen setting to high flow , he states that he has enough pain medication at home for his chronic pain, he will closely f/u with his PCP, surgeon for surveillance colonoscopy and oncologist for his hx of colon cancer, he will be going home with appropriate prescription of steroid taper, inhalers, coumadin, CCB and lasix. - Time Spent with Patient Total time spent providing and/or coordinating discharge services: - Constitutional Vitals: Temp Pulse Resp BP Pulse Ox 97.8 F 93 16 108/80 90 04/03/17 07:12 04/03/17 07:12 04/03/17 07:12 04/03/17 07:12 04/03/17 09:22 General appearance: Present: cooperative, A&O X 3, no acute distress, answers questions appropriately - Respiratory Respiratory exam: Present: decreased breath sounds (diffusely b/l). Absent: accessory muscle use, chest wall tenderness, rales, rhonchi, wheezes - Cardiovascular Cardiovascular exam: Present: irregular rhythm, +S1, +S2. Absent: clicks, gallop, rubs, systolic murmur - GI/Abdominal GI/Abdominal exam: Present: soft. Absent: distended, firm, guarding, rebound, rigid, tenderness Additional comments: colostomy bag in place - Extremities Exam Extremities exam: Present: warm, radial pulses palpable and symetrical. Absent : calf tenderness, pedal edema, tenderness <Jericho Robles - Last Filed: 04/03/17 17:31> Date of Encounter: 04/03/17 - Discharge Diagnosis (1) Acute on chronic respiratory failure with hypoxia Priority: Primary Status: Acute (2) Pulmonary embolism Priority: Primary Status: Acute Qualifiers: Pulmonary embolism type: other Chronicity: chronic Acute cor pulmonale presence: without acute cor pulmonale Qualified Code(s): I27.82 - Chronic pulmonary embolism (3) Paroxysmal a-fib Priority: Secondary Status: Chronic (4) COPD exacerbation Priority: Secondary Status: Acute (5) CKD (chronic kidney disease) stage 3, GFR 30-59 ml/min Priority: Secondary Status: Chronic (6) Syncope Priority: Primary Status: Acute Qualifiers: Syncope type: unspecified Qualified Code(s): R55 - Syncope and collapse (7) HTN (hypertension) Priority: Secondary Status: Chronic Qualifiers: Hypertension type: essential hypertension Qualified Code(s): I10 - Essential (primary) hypertension (8) Chronic thromboembolic pulmonary hypertension Priority: Secondary Status: Acute (9) H/O colon cancer, stage III Priority: Secondary Status: Chronic Procedures/tests Complete & Pending: Procedures Performed prior 72 hours Category Date Time Status CT chest w/o contrast [CT chest wo con] [CT] Routine Cat Scan 04/01/17 13:52 Completed ECG 12 lead ECG [ECG] Routine Y 04/02/17 05:21 Completed Date of admission: 03/27/17 21:56 Primary care physician: Rosa Maria Gaston CNP Consults: 03/29/17 09:23 Consult to Oncology Hematology [CONS] Routine Consulting Provider: Kendell Duke Reason for Consult: Acute on chronic PE, Need help in anticoagulation. Call Completed: Yes 03/30/17 16:11 Consult to Physical Therapy [CONS] Routine Comment: Evaluate, develop and implement POC Reason for Consult: weakness OT [Consult to Occupational Therapy] [CONS] Routine Comment: Evaluate, develop and implement POC Reason for Consult: weakness 04/02/17 10:23 Consult to Pulmonology [CONS] Routine Consulting Provider: [facility] Reason for Consult: con't to have hypoxia, chronic PE, pulm HTN, severe COPD Call Completed: Yes Hospital course: Mr. Zarate is a 77 year old male - Time Spent with Patient Total time spent providing and/or coordinating discharge services: 39min - Constitutional Vitals: Temp Pulse Resp BP Pulse Ox 97.7 F 100 16 121/77 90 04/03/17 11:11 04/03/17 11:11 04/03/17 11:11 04/03/17 11:11 04/03/17 11:57 - Attending Attestation I examined this patient and my medical decision-making was reviewed with the Resident Physician on 04/03/17. I agree with the documented findings, disposition and treatment plan as described except to the extent set forth below. Mr. Zarate has decided that he does not want further evaluation of his lungs. He does not want hospice either. He wants to go home today. He is afebrile and vitals are improved. He has new oxygen orders. Exam Alert. Comfortable Heart irreg Lungs diminished Plan D/C home today with HHC and oxygen Follow up with PCP
[2017-04-03] MEDS: Budesonide/Formoterol 80/4.5 MDI IH SCH (10:54)
[2017-04-03 11:14] VITALS: BP 121/77
--- NOTE | 2017-04-03 13:28 | Physician Discharge Referral ---
Home Health/Hosp Referral Info Transfer to: Home Health Attending Provider: Dr. Robles Provider in Charge Post Discharge: PCP - Diagnosis (1) Acute on chronic respiratory failure with hypoxia Priority: Primary Status: Acute (2) Chronic thromboembolic pulmonary hypertension Status: Acute (3) Pulmonary embolism Status: Acute (4) CKD (chronic kidney disease) stage 3, GFR 30-59 ml/min Status: Chronic (5) Syncope Status: Acute (6) H/O colon cancer, stage III Status: Chronic (7) DVT prophylaxis Status: Acute - Respiratory Orders Oxygen / L per min (10L high flow) Smoking Cessation: Smoking cessation has been advised. For more information, call the [place] Tobacco Quit Line at 2-687-GLDM-NOW. - Diet/Nutrition Diet/Nutrition Orders: No Added Salt (JENNIFER), Cardiac - Activity Activity Orders: Up ad wilberto - Services Needed Following services are medically necessary services: Nursing, Home Health Aide, Physical Therapy, Occupational Therapy - Transfer Medications Prescriptions: Ipratropium/Albuterol Neb [Duoneb] 3 ml IH Q6HR #30 inhsol Budesonide/Formoterol 80/4.5 [Symbicort 80/4.5] 2 puff IH BIDR #1 inhaler dilTIAZem HCl [Cardizem] 60 mg PO QID #30 tablet Folic Acid 1 mg PO DAILY #10 tablet Furosemide [Lasix] 40 mg PO DAILY #30 tablet predniSONE [PredniSONE] 10 mg PO DAILY #35 tablet Thiamine (B-1) [Vitamin B-1] 100 mg PO DAILY #10 tablet Warfarin [Coumadin] 2.5 mg PO 1800 #10 tablet Home Medications: Albuterol Sulfate [Albuterol Inhaler] 2 puff IH Q4HR PRN 08/08/15 [History] LORazepam [Ativan] 1 mg PO BID 08/08/15 [History] Gabapentin [Neurontin] 300 mg PO BID 03/27/17 [History] Omeprazole [PriLOSEC] 20 mg PO DAILY 03/27/17 [History] Oxycodone HCl/Acetaminophen [Percocet 10-325 mg Tablet] 1 each PO Q6H PRN [History] Oxygen 1 each .ROUTE AD 03/27/17 [History] Budesonide/Formoterol 80/4.5 [Symbicort 80/4.5] 2 puff IH BIDR #1 inhaler 04/03 [Rx] Folic Acid 1 mg PO DAILY #10 tablet 04/03/17 [Rx] Furosemide [Lasix] 40 mg PO DAILY #30 tablet 04/03/17 [Rx] Ipratropium/Albuterol Neb [Duoneb] 3 ml IH Q6HR #30 inhsol 04/03/17 [Rx] Thiamine (B-1) [Vitamin B-1] 100 mg PO DAILY #10 tablet 04/03/17 [Rx] Warfarin [Coumadin] 2.5 mg PO 1800 #10 tablet 04/03/17 [Rx] dilTIAZem HCl [Cardizem] 60 mg PO QID #30 tablet 04/03/17 [Rx] predniSONE [PredniSONE] 10 mg PO DAILY #35 tablet 04/03/17 [Rx] Allergies/Adverse Reactions: Allergies No Known Allergies Allergy (Verified 03/27/17 17:08) Certification: Further, I certify that my clinical findings support that this patient is homebound (i.e. absences from home require considerable and taxing effort and are for medical reasons or [employer] services or infrequently or short duration when for other reasons) because: he is having difficulty getting in/out of vehicle. Homebound Reason: Leaving home requires considerable and taxing effort due to condition Attestation: My signature below is to certify that this patient is under my care and that I, or nurse practitioner, or a physician's therapist's assistant working with me, has a face-to -face encounter with this patient.
[2017-04-03] MEDS ORDERED: Aminoglycoside Consult 1 EACH MC ONE (15:47)
== END 2017-04-03 15:48 | disposition home health service (06) | DRG 175 ==
LOC: EMEROO 16:51 → 2NENU 16:51 → SUATTDRO 21:56
PROVIDERS: ADMIT Internal Medicine; ATTEND Internal Medicine